=== PATIENT | female | born 1960 | race Caucasian/White ===

== ENCOUNTER 2018-02-09 00:57 | Inpatient (IN) ==
--- NOTE | 2018-02-09 01:46 | Emergency Department Note ---
ED Disposition Clinical Impression: Bronchitis, Renal insufficiency, Elevated TSH Congestive heart failure Qualifiers: Heart failure type: unspecified Heart failure chronicity: unspecified Qualified Code(s): I50.9 - Heart failure, unspecified Obesity Qualifiers: Obesity type: due to excess calories Obesity classification: adult class 3 (BMI >= 40) Serious obesity comorbidity presence: with serious comorbidity Body mass index: BMI 45.0-49.9 Qualified Code(s): E66.01 - Morbid (severe) obesity due to excess calories; Z68.42 - Body mass index (BMI) 45.0-49.9, adult Diabetes mellitus, insulin dependent (IDDM), uncontrolled Qualifiers: Glycemic state: with hyperglycemia Qualified Code(s): E10.65 - Type 1 diabetes mellitus with hyperglycemia Disposition: Admitted as Observation Condition on Discharge: Serious - Critical Care Critical Care Time: No Attestation: On 02/09/18, the high probability of a clinically significant, sudden or life threatening deterioration of the following system(s) required my full and direct attention, intervention and personal management. The time I documented below is in addition to time spent performing reported procedures but includes the following listed in this critical care notation. Medical Decision Making - Medical Records Medical records reviewed: Yes: I reviewed the patient's medical records. - Uriel Inquiry Pt receiving controlled substance: No Vital Signs: 02/09/18 01:02 Temperature 98.3 F Temperature Source Oral Respiratory Rate 18 Blood Pressure [Right Arm] 120/76 Blood Pressure Mean [Right Arm] 90 Blood Pressure Source [Right Arm] Automatic Cuff Blood Pressure Position [Right Arm] Sitting 02 Sat by Pulse Oximetry 98 Oxygen Delivery Method Room Air - Lab Data Lab results reviewed: Yes: I reviewed the patient's lab results. Lab Results 02/09/18 02:50: WBC 9.3, RBC 4.10 L, Hgb 11.2 L, Hct 38.0, MCV 92.7, MCH 27.3, MCHC 29.4 L, RDW 14.3, Plt Count 254, MPV 9.4, Neut % (Auto) 73.5, Lymph % (Auto) 19.1, [place] % (Auto) 5.5, Eos % (Auto) 1.2, Baso % (Auto) 0.6, Neut # (Auto) 6.9, Lymph # (Auto) 1.8, [place] # (Auto) 0.5, Eos # (Auto) 0.1, Baso # (Auto) 0.1 02/09/18 02:50: Sodium 132 L, Potassium 4.2, Chloride 96 L, Carbon Dioxide 26, Anion Gap 14.2, BUN 22 H, Creatinine 1.52 H, Estimated Creat Clear 41, Estimated GFR 35 L, Est GFR ( Amer) 43 L, Glucose 559 H*, Calcium 8.6, Troponin I 0.03, TSH 10.90 H, Thyroxine (T4) 6.6 02/09/18 02:50: B-Natriuretic Peptide 1070 H 02/09/18 02:50: Lactate 2.6 H Result diagrams: 02/09/18 02:50 02/09/18 02:50 Orders (Tests/Meds): ORDERS Category Date Time Status XR chest 2V Stat Exams 02/09/18 01:14 Taken Blood Culture Stat Micro 02/09/18 02:50 Received - Radiology Data #1 Image(s): Chest Image Reviewed: Yes I reviewed the patient's radiology image Preliminary Findings: Abnormal (chf/effusion) - ECG Data Tracing #1 Normal Sinus Rhythm: Yes Ischemic changes: non-specific ST-T wave changes ECG compared to prior tracings: there are no prior tracings available for comparison - Physician Consults Physician Consulted: juan Reason -: Admission Resp/SOB HPI - General Chief Complaint: Shortness of Breath/Dyspnea Stated Complaint: SOB Time Seen by Provider: 02/09/18 01:45 Mode of Arrival: Ambulatory Source of Information: Patient, Relative, Medical Record Limitations: No Limitations Description of Symptoms (Recalled from ER Triage Doc. by RN): Pt states she is SOA, states she had a fever 2 days. and has been coughing up yellow stuff, sore throat, lost her voice 2 days ago, she states it knox when she breaths. - History of Present Illness this wf presents to the ed with c/c of sob fide with ambulation and lying down - occ chest pain - denied any hx of sig ht dis and no tob and admits non-compliant with diet and meds - she has had element of dysphonia and occ cough and she had concerns about bronchitis - she is diabetic MD Complaint: shortness of breath Onset (ago): day(s) Context: recent illness, occurred during exertion, medication noncompliance, elevated blood glucose Severity: moderate Relieving factors: upright position Exacerbating factors: lying flat, exertion Known history of: diabetes Associated symptoms: orthopnea Treatment prior to arrival: none - Related Data Home oxygen amount: none Home Medications Medication Instructions Recorded Confirmed Albuterol Sulfate [Albuterol HFA 18 gm IH DAILY 02/09/18 02/09/18 Inhaler] Furosemide [Furosemide 40MG tAB] 40 mg PO DAILY 02/09/18 02/09/18 Gabapentin 800 mg PO DAILY 02/09/18 02/09/18 Insulin Aspart [Novolog] 100 unit SQ DAILY 02/09/18 02/09/18 Insulin Detemir [Levemir 100 unit IS DAILY 02/09/18 02/09/18 100units/mL 3mL flexpen] Lubiprostone [Amitiza] 24 mcg PO DAILY 02/09/18 02/09/18 Potassium 99 mg PO DAILY 02/09/18 02/09/18 Pregabalin [Lyrica 150mg Cap] 150 mg PO DAILY 02/09/18 02/09/18 Sitagliptin Phosphate [Januvia 100 mg PO DAILY 02/09/18 02/09/18 100mg tablet] glipiZIDE [Glipizide ER] 5 mg PO DAILY 02/09/18 02/09/18 Allergies Allergy/AdvReac Type Severity Reaction Status Date / Time Penicillins Allergy Verified 02/09/18 01:13 [facility] History - Hepatitis A Screen Drug use history?: No High risk sexual behaviors?: No History of sexually transmitted infection?: No Currently employed?: No Childcare worker?: No Do you have indoor plumbing?: Yes Do you have electricity?: Yes Attestation statement:: This patient has been screened for Hepatitis A risk factors. I have reviewed the patient's past medical history: Yes Medical History: Reports:: Diabetes Mellitus Type 2 - Social History Smoking Status: Current every day smoker Alcohol Intake: never - Psychiatric History Expresses thoughts of harming self/others: None Suicide Plan Description: No Plan ROS Obtained: Yes All systems reviewed & no additional complaints - Constitutional Constitutional: Denies fever(s) - Eyes Eyes: Denies change in vision - ENT Ears, Nose, Mouth, and Throat: Denies sore throat - Cardiovascular Cardiovascular: Denies chest pain, Reports dyspnea - Respiratory Respiratory: Yes as per HPI, Yes cough, No coughing up blood - Gastrointestinal Gastrointestingal: Denies: abdominal pain - Genitourinary Female Genitourinary: Denies hematuria - Musculoskeletal Musculoskeletal: Denies joint pain, Denies neck pain - Integumentary/Breasts Skin/Breast: Denies rash - Neurologic Neurologic: Denies headache(s), Denies seizure-like activity Physical Exam - General General appearance: alert, obese - Head Head exam: normocephalic - Eye Eye exam: Present: PERRL, EOMI. Absent: scleral icterus - ENT ENT exam: Present: mucous membranes dry - Neck Neck exam: Present: trachea midline, other (no jvd) - Respiratory Respiratory exam: Present: wheezes, prolonged expiratory phase, other (bilat rhonchi ) - Cardiovascular Cardiovascular exam: Present: regular rate, systolic murmur, +S4 - Abdominal Exam Abdominal exam: Present: soft, distention - Extremities Exam Extremities exam: Present: pedal edema. Absent: calf tenderness - Neurological Exam Neurological exam: Present: alert, oriented X3, CN II-XII intact - Psychiatric Psychiatric exam: Present: anxious - Skin Skin exam: Absent: rash
[2018-02-09 02:59] LABS: Basophils # 0.1 K/mm3 (0-0.2); Basophils % 0.6 % (0.1-2.0); Eosinophils # 0.1 K/mm3 (0.0-0.4); Eosinophils % 1.2 % (0.1-12.0); Hemoglobin 11.2 g/dL (12.2-16.2); Lymphocytes # 1.8 K/mm3 (0.7-4.5); Lymphocytes % 19.1 % (10-50); Mean Corpuscular HGB Conc 29.4 g/dL (31.8-35.4); Mean Corpuscular Hemoglobin 27.3 pg (27.0-31.2); Mean Corpuscular Volume 92.7 fl (81-99); Mean Platelet Volume 9.4 fl (7.4-10.4); Monocytes # 0.5 K/mm3 (0.1-1.0); Monocytes % 5.5 % (1.7-9.3); Neutrophils # 6.9 K/mm3 (1.8-7.8); Neutrophils % 73.5 % (37.0-80.0); Platelet Count 254 K/mm3 (142-424); Red Cell Distribution Width 14.3 % (11.5-17.5); White Blood Count 9.3 K/mm3 (4.8-10.8)
[2018-02-09 03:26] LABS: Anion Gap 14.2 mEq/L (5-15); Calcium 8.6 mg/dL (8.5-10.1); Potassium 4.2 mmoL/L (3.5-5.1); T4 (Thyroxine) 6.6 ug/dl (4.7-13.3); Thyroid Stimulating Hormone 10.9 uIU/ml (0.358-3.740)
--- NOTE | 2018-02-09 07:18 | History & Physical Report ---
*Admission Date: 02/09/18 *Chief complaint: SOA, cough *History of present illness: 57-year-old female with morbid obesity, hypertension, type 2 diabetes, hypothyroidism, and presumed CHF who presented to the ER with worsening shortness of breath, 3 days of fever and productive cough. She did receive Lasix overnight with some improvement in her shortness of breath. Patient denies use of alcohol and quit smoking about 7 years ago (approximately 27-atwb-cvbs history of smoking). Blood sugars not well controlled per patient. On an interesting regimen of detemir and NovoLog, approximately 60/40. evaluation in the ER showed normal troponin with evidence of congestive heart failure on chest x-ray and with elevated BNP greater than 5000. Patient was admitted for further treatment. Cardiology consulted for evaluation recommendations. Overnight patient has been stable on room air. Continues to have slightly productive cough. Echocardiogram being performed this morning on interview. [facility] History I have reviewed the patient's past medical history: Yes Medical History: Reports:: Diabetes Mellitus Type 2, Hypertension, MRSA Denies:: Cancer Other Medical History: Reports: Anemia, Hypothyroidism Other Surgeries: Yes: Appendectomy, Cholecystectomy, Hernia Repair (20), Tubal Ligation, Other (Partial Bowel Removal) Amputation: No Fractures: No - *Social History Educational Level: Completed Trade [employer] Smoking Status: Former smoker #Yrs smoked (if former smoker): 40 Smoking End Date: 2010 Alcohol Intake: former Occupational Status: disabled Housing: house - Psychiatric History Expresses thoughts of harming self/others: None Suicide Plan Description: No Plan *Family Hx:: Cancer, Hypertension, Stroke Review of Systems - Review of Systems Review of systems:: pertinent systems reviewed and negative unless documented below - *Neurologic Denies headache(s), Denies seizure-like activity Meds Home Medications Medication Instructions Recorded Confirmed Type Albuterol Sulfate [Albuterol HFA 1 - 2 puffs IH Q4-6H PRN 02/09/18 02/09/18 History Inhaler] Furosemide [Furosemide 40MG tAB] 40 mg PO DAILY 02/09/18 02/09/18 History Gabapentin 800 mg PO TID 02/09/18 02/09/18 History Insulin Aspart [Novolog Flexpen] 60 unit SQ BID 02/09/18 02/09/18 History Levothyroxine Sodium 175 mcg PO DAILY 02/09/18 02/09/18 History [Levothyroxine 175mcg (0.175mg) Tab] Losartan/Hydrochlorothiazide 1 each PO DAILY 02/09/18 02/09/18 History [Losartan-Hctz 100-25 mg Tab] Lubiprostone [Amitiza] 24 mcg PO BID 02/09/18 02/09/18 History Pantoprazole Sodium [Protonix 40mg 40 mg PO HS 02/09/18 02/09/18 History tablet] Phentermine HCl 37.5 mg PO DAILY 02/09/18 02/09/18 History Potassium Chloride 20 meq PO BID 02/09/18 02/09/18 History Pregabalin [Lyrica 150mg Cap] 150 mg PO BID 02/09/18 02/09/18 History Sitagliptin Phosphate [Januvia 100 mg PO DAILY 02/09/18 02/09/18 History 100mg tablet] Tizanidine HCl [Zanaflex 4mg 4 mg PO TIDP PRN 02/09/18 02/09/18 History tablet] glipiZIDE [Glipizide ER] 5 mg PO DAILY 02/09/18 02/09/18 History Allergies Allergy/AdvReac Type Severity Reaction Status Date / Time Penicillins Allergy Verified 02/09/18 01:13 Exam Vital signs and Labs for Last 24 Hours: Temp Pulse Resp BP Pulse Ox 97.6 F 85 20 110/59 L 93 L 02/09/18 05:49 02/09/18 04:54 02/09/18 05:49 02/09/18 05:49 02/09/18 05:49 Laboratory Results - last 24 hr 02/09/18 02:50: WBC 9.3, RBC 4.10 L, Hgb 11.2 L, Hct 38.0, MCV 92.7, MCH 27.3, MCHC 29.4 L, RDW 14.3, Plt Count 254, MPV 9.4, Neut % (Auto) 73.5, Lymph % (Auto) 19.1, [place] % (Auto) 5.5, Eos % (Auto) 1.2, Baso % (Auto) 0.6, Neut # (Auto) 6.9, Lymph # (Auto) 1.8, [place] # (Auto) 0.5, Eos # (Auto) 0.1, Baso # (Auto) 0.1 02/09/18 02:50: Sodium 132 L, Potassium 4.2, Chloride 96 L, Carbon Dioxide 26, Anion Gap 14.2, BUN 22 H, Creatinine 1.52 H, Estimated Creat Clear 41, Estimated GFR 35 L, Est GFR ( Amer) 43 L, Glucose 559 H*, Calcium 8.6, Troponin I 0.03, TSH 10.90 H, Thyroxine (T4) 6.6 02/09/18 02:50: B-Natriuretic Peptide 1070 H 02/09/18 02:50: Lactate 2.6 H 02/09/18 06:14: POC Glucose 456 H* I & O for Last 24 hours: Intake & Output 02/06/18 02/07/18 02/08/18 02/09/18 23:59 23:59 23:59 23:59 Weight 146.142 kg Microbiology Reports for the Last 24 Hours: Microbiology 02/09/18 04:50 Sputum - Expectorated Sputum Gram Stain - Final - Constitutional mild distress, morbidly obese - *Routine HEENT Exam Head: Present: normocephalic, atraumatic Eye: Present: EOMI, PERRL ENT: Present: mucous membranes moist - *Routine Neck Exam Present: supple - *Routine Respiratory Exam Present: distant breath sounds. Absent: wheezes, crackles - *Routine Cardiovascular Exam Present: Normal S1, Normal S2, irregularly irregular - *Routine Abdominal Exam Present: soft Comments: Obese - *Routine Rectal Exam Patient deferred: visual exam - *Routine Exam Patient deferred: external exam - *Routine Extremities Exam Present: edema. Absent: cyanosis, clubbing - *Routine Skin Exam Present: intact. Absent: cyanosis, erythema - *Routine Neurological Exam Present: alert, oriented X3, altered mental status Assessment and Plan (1) Anemia Current visit: Yes Status: Acute Qualifiers: Anemia type: unspecified type Qualified Code(s): D64.9 - Anemia, unspecified Category: Medical Code(s): D64.9 - Anemia, unspecified per history by patient - stable at this time, mild anemia, normochromic - monitor with AM labs. (2) Atrial fibrillation, new onset Current visit: Yes Status: Acute Category: Medical Code(s): I48.91 - Unspecified atrial fibrillation on Lovenox - valvular disease, needs transition to coumadin when stable (3) Bronchitis Current visit: Yes Status: Acute Category: Medical Code(s): J40 - Bronchitis, not specified as acute or chronic continue Levaquin for total of 7 days (4) CKD (chronic kidney disease) stage 3, GFR 30-59 ml/min Current visit: Yes Status: Acute Category: Medical Code(s): N18.3 - Chronic kidney disease, stage 3 (moderate) monitor daily - avoid nephrotoxics (5) Congestive heart failure Current visit: Yes Status: Acute Qualifiers: Heart failure type: combined systolic and diastolic Heart failure chronicity: unspecified Qualified Code(s): I50.40 - Unspecified combined systolic (congestive) and diastolic (congestive) heart failure Category: Medical Code(s): I50.9 - Heart failure, unspecified Echo with right and left sided dysfunction - EF 40% - global hypokinesis - goal directed therapy with Spironolactone, Coreg, LAsix. Declined Entresto due to past issues with lisinopril - cardiology consulted, appreciate recs - Recommend Cath Monday. (6) Diabetes mellitus, insulin dependent (IDDM), uncontrolled Current visit: Yes Status: Chronic Qualifiers: Glycemic state: with hyperglycemia Qualified Code(s): E10.65 - Type 1 diabetes mellitus with hyperglycemia Category: Medical Code(s): E10.65 - Type 1 diabetes mellitus with hyperglycemia Type 2 with uncontrolled status - A1C in AM - restarted home novolog 60/40 - SSI with fingersticks AC/HS (7) Elevated TSH Current visit: Yes Status: Chronic Category: Medical Code(s): R79.89 - Other specified abnormal findings of blood chemistry chronic, on levothyroxine 175mcg. - continue home dose (8) HFrEF (heart failure with reduced ejection fraction) Current visit: Yes Status: Chronic Qualifiers: Heart failure chronicity: acute on chronic Qualified Code(s): I50.23 - Acute on chronic systolic (congestive) heart failure Category: Medical Code(s): I50.20 - Unspecified systolic (congestive) heart failure diurese and goal directed therapy as per above. (9) Morbid obesity Current visit: Yes Status: Acute Category: Medical Code(s): E66.01 - Morbid (severe) obesity due to excess calories complicates all aspects of care - Assessment and plan all Dx Assessment and Plan for all problems:: patient remains medically unstable with continued need for inpatient management.
--- NOTE | 2018-02-09 07:59 | Consult Report ---
History of Present Illness Consult date: 02/09/18 Requesting physician: Kristofer De Leon Consult reason: shortness of breath Chief complaint: SOA Additional Medical History:: 1. Diabetes mellitus, treated since 2007 2. Obesity, morbid 3. Multiple (27 per patient) abdominal surgeries including placement and reversal of colostomy 4. Hypertension 5. Newly diagnosed atrial fibrillation, 02/09/2018 6. History of tobacco use discontinued approximately 2010, previously smoked 3 packs/week for about 30 years 7. History of anemia requiring transfusion in the past. Pt reports anemia due to multiple surgeries on abdomen 8. Hypothyroidism, on supplement History of present illness: 57-year-old white female with diabetes, hypertension and morbid obesity presented with increasing shortness of breath over the last 3 days. Patient denies any previous history of cardiac issues or known congestive heart failure. She did receive Lasix overnight with some improvement in her shortness of breath. Patient denies use of alcohol and quit smoking about 7 years ago. Blood sugars not well controlled per patient. Evaluation in the ER showed normal troponin with evidence of congestive heart failure on chest x-ray and with elevated BNP greater than 5000. Patient was admitted for further treatment. Cardiology consulted for evaluation recommendations. Preliminary echocardiogram this morning shows ejection fraction about 30%. Official reading pending [facility] History Medical History: Reports:: Diabetes Mellitus Type 2, Hypertension, MRSA Denies:: Cancer Other Medical History: Reports: Anemia, Hypothyroidism Other Surgeries: Yes: Appendectomy, Cholecystectomy, Hernia Repair (20), Tubal Ligation, Other (Partial Bowel Removal) Amputation: No Fractures: No - *Social History Educational Level: Completed Trade [employer] Smoking Status: Former smoker #Yrs smoked (if former smoker): 40 Smoking End Date: 2010 Alcohol Intake: former Occupational Status: disabled Housing: house - Psychiatric History Expresses thoughts of harming self/others: None Suicide Plan Description: No Plan *Family Hx:: Cancer, Hypertension, Stroke Meds Home Medications Medication Instructions Recorded Confirmed Type Albuterol Sulfate [Albuterol HFA 1 - 2 puffs IH Q4-6H PRN 02/09/18 02/09/18 History Inhaler] Furosemide [Furosemide 40MG tAB] 40 mg PO DAILY 02/09/18 02/09/18 History Gabapentin 800 mg PO TID 02/09/18 02/09/18 History Insulin Aspart [Novolog Flexpen] 60 unit SQ BID 02/09/18 02/09/18 History Levothyroxine Sodium 175 mcg PO DAILY 02/09/18 02/09/18 History [Levothyroxine 175mcg (0.175mg) Tab] Losartan/Hydrochlorothiazide 1 each PO DAILY 02/09/18 02/09/18 History [Losartan-Hctz 100-25 mg Tab] Lubiprostone [Amitiza] 24 mcg PO BID 02/09/18 02/09/18 History Pantoprazole Sodium [Protonix 40mg 40 mg PO HS 02/09/18 02/09/18 History tablet] Phentermine HCl 37.5 mg PO DAILY 02/09/18 02/09/18 History Potassium Chloride 20 meq PO BID 02/09/18 02/09/18 History Pregabalin [Lyrica 150mg Cap] 150 mg PO BID 02/09/18 02/09/18 History Sitagliptin Phosphate [Januvia 100 mg PO DAILY 02/09/18 02/09/18 History 100mg tablet] Tizanidine HCl [Zanaflex 4mg 4 mg PO TIDP PRN 02/09/18 02/09/18 History tablet] glipiZIDE [Glipizide ER] 5 mg PO DAILY 02/09/18 02/09/18 History Allergies Allergy/AdvReac Type Severity Reaction Status Date / Time Penicillins Allergy Verified 02/09/18 01:13 Review of Systems - *Cardiovascular Reports shortness of breath, Reports shortness of breath with activity, Denies chest pain - *Respiratory Reports shortness of breath, Reports shortness of breath with activity - *Gastrointestinal Denies abdominal pain, Denies black, tarry stools - *Genitourinary Denies blood in urine - *Musculoskeletal Reports joint pain - *Neurologic Denies headache(s), Denies seizure-like activity Exam Vital signs and Labs for Last 24 Hours: Temp Pulse Resp BP Pulse Ox 97.6 F 85 20 110/59 L 93 L 02/09/18 05:49 02/09/18 04:54 02/09/18 05:49 02/09/18 05:49 02/09/18 05:49 Laboratory Results - last 24 hr 02/09/18 02:50: WBC 9.3, RBC 4.10 L, Hgb 11.2 L, Hct 38.0, MCV 92.7, MCH 27.3, MCHC 29.4 L, RDW 14.3, Plt Count 254, MPV 9.4, Neut % (Auto) 73.5, Lymph % (Auto) 19.1, [place] % (Auto) 5.5, Eos % (Auto) 1.2, Baso % (Auto) 0.6, Neut # (Auto) 6.9, Lymph # (Auto) 1.8, [place] # (Auto) 0.5, Eos # (Auto) 0.1, Baso # (Auto) 0.1 02/09/18 02:50: Sodium 132 L, Potassium 4.2, Chloride 96 L, Carbon Dioxide 26, Anion Gap 14.2, BUN 22 H, Creatinine 1.52 H, Estimated Creat Clear 41, Estimated GFR 35 L, Est GFR ( Amer) 43 L, Glucose 559 H*, Calcium 8.6, Troponin I 0.03, TSH 10.90 H, Thyroxine (T4) 6.6 02/09/18 02:50: B-Natriuretic Peptide 1070 H 02/09/18 02:50: Lactate 2.6 H 02/09/18 06:14: POC Glucose 456 H* I & O for Last 24 hours: Intake & Output 02/06/18 02/07/18 02/08/18 02/09/18 11:59 11:59 11:59 11:59 Weight 322 lb 3 oz Microbiology Reports for the Last 24 Hours: Microbiology 02/09/18 04:50 Sputum - Expectorated Sputum Gram Stain - Final - *Routine Neck Exam Present: supple. Absent: JVD, carotid bruit - *Routine Respiratory Exam Present: decreased breath sounds, rales, diminished air movement. Absent: accessory muscle use, rhonchi, wheezes - *Routine Cardiovascular Exam Present: irregular rhythm. Absent: murmur, gallop, rubs - *Routine Abdominal Exam Present: soft. Absent: tenderness, distended, guarding - *Routine Extremities Exam Absent: edema, calf tenderness - *Routine Neurological Exam Present: alert, oriented X3, moving all extremities Assessment and Plan (1) HFrEF (heart failure with reduced ejection fraction) Current visit: Yes Status: Acute Category: Medical Code(s): I50.20 - Unspecified systolic (congestive) heart failure (2) Congestive heart failure Current visit: Yes Status: Acute Qualifiers: Heart failure type: unspecified Heart failure chronicity: unspecified Qualified Code(s): I50.9 - Heart failure, unspecified Category: Medical Code(s): I50.9 - Heart failure, unspecified (3) Atrial fibrillation, new onset Current visit: Yes Status: Acute Category: Medical Code(s): I48.91 - Unspecified atrial fibrillation (4) Diabetes mellitus, insulin dependent (IDDM), uncontrolled Current visit: Yes Status: Acute Qualifiers: Glycemic state: with hyperglycemia Qualified Code(s): E10.65 - Type 1 diabetes mellitus with hyperglycemia Category: Medical Code(s): E10.65 - Type 1 diabetes mellitus with hyperglycemia (5) Morbid obesity Current visit: Yes Status: Acute Category: Medical Code(s): E66.01 - Morbid (severe) obesity due to excess calories (6) Anemia Current visit: Yes Status: Acute Category: Medical Code(s): D64.9 - Anemia, unspecified (7) CKD (chronic kidney disease) stage 3, GFR 30-59 ml/min Current visit: Yes Status: Acute Category: Medical Code(s): N18.3 - Chronic kidney disease, stage 3 (moderate) - Assessment and plan all Dx Assessment and Plan for all problems:: 1. Newly diagnosed heart failure with newly diagnosed cardiomyopathy in combination with newly diagnosed atrial fibrillation. Etiology of the reduced ejection fraction at this time is unknown but includes viral cardiomyopathy, cardiomyopathy related to atrial fibrillation or cardiomyopathy due to coronary artery disease with possible old myocardial infarction. Continue IV diuretics. Patient will need cardiac catheterization once she is able to lie flat for more than 1 minute. 2. We will start standard medical therapy for cardiomyopathy and congestive heart failure including Entresto (pt refuses lisinopril and has had diovan in the past), beta-kemal, digoxin and spironolactone in addition to IV lasix. 3. Echocardiogram has been ordered. 4. With tentatively plan for cardiac catheterization on Monday if patient is still in the hospital, otherwise it will be performed as an outpatient. 5. We will start Lovenox 1 mg/kg twice daily due to the atrial fibrillation and plan to hold Monday morning in preparation for the cardiac catheterization. If patient is discharged home over the weekend recommend switching to Eliquis therapy as patient has voiced some concern regarding Xarelto.
--- NOTE | 2018-02-09 08:09 | Pharmacy Consult Notes ---
[facility] Pharmacy VTE Monitoring - Patient Demographics Admission date: 02/09/18 Report Date: 02/09/18 Time: 08:09 Allergies/Adverse Reactions: Patient Allergies Penicillins Allergy (Verified 02/09/18 01:13) Height: 98.22 m Weight: 146.142 kg Patient Problems: Current Active Problems Bronchitis (Acute) Congestive heart failure (Acute) Renal insufficiency (Acute) Elevated TSH (Acute) Obesity (Acute) Diabetes mellitus, insulin dependent (IDDM), uncontrolled (Acute) - VTE Risk Labs: VTE Related Lab Results Hgb 11.2 g/dL (12.2-16.2) L 02/09/18 02:50 Hct 38.0 % (37.0-47.0) 02/09/18 02:50 Plt Count 254 K/mm3 (142-424) 02/09/18 02:50 BUN 22 mg/dL (7-18) H 02/09/18 02:50 Creatinine 1.52 mg/dL (0.55-1.02) H 02/09/18 02:50 Estimated Creat Clear 41 mL/min (50-200) 02/09/18 02:50 VTE Risk Level: Moderate Risk - Prophylaxis VTE Prophylaxis Ordered?: Yes Types of VTE Prophylaxis: TEDS Knee High Location of Applied Device: Bilateral Lower Extremeties - VTE Diagnosis Confirmed Treatment or plan recommended: Continue Current Treatment
--- NOTE | 2018-02-09 10:16 | Cardiology Report ---
PROCEDURE: 2-D M-mode and color Doppler study INDICATIONS FOR THE TEST: Chest pain COPD Heart MurmurX Tobacco SmokingEX Palpitations Fatigue Syncope Edema HypertensionXDiabetes MellitusX Rheumatic Fever SOBXDOEXObesityXHyperlipidemia Family History HD Additional History AF TDS OBESITY,DILATED LV PATIENT INFORMATION HEIGHT: 68 WEIGHT:322 GENDER: Female B/P:110/59 2-D/M-MODE INTERPRETATION: 2-D MEASUREMENTS OBSERVED VALUES IN CMS Right Ventricular Dimension (RVDd) 3.8 Interventricular Septum (Thickness)(IVsd) 1.0 Left Ventricular Internal Dimensions(LVIDd) 6.7 Left Ventricular Posterior Wall (Thickness)(LVPWd) 1.3 Aortic Root 3.7 Aortic Cusp Separation 1.0 Left Atrial Dimensions (LAD) 4.4 2D 1. Left atrium is mildly enlarged, left ventricle is mildly dilated, there is mild concentric left ventricular hypertrophy, there is moderately reduced left ventricular systolic function, visually estimated ejection fraction of 40% with left ventricular global hypokinesis. 2. The right atrium and right ventricle are mildly enlarged with normal contractility. 3. The aortic valve is thickened and calcified leaflet continue to display mobility. 4. The mitral valve has mitral annular calcification. 5. The tricuspid valve is grossly normal. 6. No significant pericardial effusion noted. DOPPLER INTERROGATION: Doppler interrogation of the aortic, mitral and tricuspid valvular presence of mild mitral and tricuspid regurgitation, calculated right ventricular systolic pressure is 49 mmHg consistent with moderate pulmonary hypertension, diastolic parameters are inconclusive. CONCLUSION: 1. Mildly enlarged left atrium, mildly dilated left ventricle, there is mild concentric left ventricular hypertrophy, visually estimated ejection fraction 40% with left ventricle global hypokinesis. Diastolic parameters are inconclusive. 2. Mildly enlarged right ventricle with normal contractility. 3. Thickened and calcified aortic valve without Doppler evidence of aortic stenosis aortic insufficiency. 4. Mild mitral and tricuspid regurgitation, calculated right ventricular systolic pressure is 49 mmHg consistent with moderate pulmonary hypertension. 5. No significant pericardial effusion noted.
[2018-02-10 07:02] LABS: Basophils % 0.6 % (0.1-2.0); Eosinophils # 0.2 K/mm3 (0.0-0.4); Eosinophils % 2.3 % (0.1-12.0); Hematocrit 38.6 % (37.0-47.0); Hemoglobin 11.5 g/dL (12.2-16.2); Lymphocytes # 2.4 K/mm3 (0.7-4.5); Lymphocytes % 30.3 % (10-50); Mean Corpuscular HGB Conc 29.9 g/dL (31.8-35.4); Mean Corpuscular Hemoglobin 26.4 pg (27.0-31.2); Mean Corpuscular Volume 88.2 fl (81-99); Mean Platelet Volume 9.6 fl (7.4-10.4); Monocytes # 0.6 K/mm3 (0.1-1.0); Monocytes % 7.5 % (1.7-9.3); Neutrophils # 4.7 K/mm3 (1.8-7.8); Neutrophils % 59.3 % (37.0-80.0); Platelet Count 241 K/mm3 (142-424); Red Blood Count 4.37 M/mm3 (4.20-5.40); Red Cell Distribution Width 14.8 % (11.5-17.5)
--- NOTE | 2018-02-10 07:47 | Discharge Summary ---
General - General Admission date:: 02/09/18 Discharge date: 02/10/18 HPI HPI: 57-year-old female with morbid obesity, hypertension, type 2 diabetes, hypothyroidism, and presumed CHF who presented to the ER with worsening shortness of breath, 3 days of fever and productive cough. She did receive Lasix overnight with some improvement in her shortness of breath. Patient denies use of alcohol and quit smoking about 7 years ago (approximately 10-pack- year history of smoking). Blood sugars not well controlled per patient. On an interesting regimen of detemir and NovoLog, approximately 60/40. evaluation in the ER showed normal troponin with evidence of congestive heart failure on chest x-ray and with elevated BNP greater than 5000. Patient was admitted for further treatment. Cardiology consulted for evaluation recommendations. Overnight patient has been stable on room air. Continues to have slightly productive cough. Echocardiogram being performed this morning on interview. Hospital Course Hospital Course: Patient was admitted, multiple including chest x-ray which revealed evidence of lobar pneumonia and patient was continued on levofloxacin that had been prescribed from the emergency department. Given patient's breathlessness and other stigmata of CHF echocardiogram was done which revealed ejection fraction of 30% with symmetric wall motion. She was also found to have atrial fibrillation with controlled rate response. Patient has no history of cardiac disease and was very surprised by this diagnosis. Patient was placed on spironolactone. Afterload reduction and diuresis were also given. Patient improved very nicely with almost 7 L of diuresis over the next 38-42 hours. [place] much better and was able to rest comfortably on room air. This morning she wishes to be discharged. Plan will be as follows: 1. Discharge home on antibiotics, spironolactone and Entresto as noted. 2. Patient is set up for outpatient heart catheterization on Monday, as a result of this impending heart catheterization we will not initiate anticoagulation therapy at this point. 3. She will continue current diabetic regimen but she will discuss with her primary physician her frequent hypoglycemia she reports occurs at home. Instructed to return to the emergency department if breathlessness, chest pain or other cardiac symptoms occur. Objective Vital signs: Temp Pulse Resp BP Pulse Ox 97.6 F 74 20 146/69 H 94 L 02/10/18 04:00 02/10/18 04:00 02/10/18 04:00 02/10/18 04:00 02/10/18 06:38 Narrative: Patient is pleasant, talkative, morbidly obese which limits her exam accuracy and complicates all aspects of her care. Posterior lung blue are clear with fairly good air entry. Heart rate irregular but rate controlled. Abdomen is soft and nontender. No peripheral edema noted. Improved over admission exam. Results Labs on day of discharge: Labs from last 24 hours 02/10/18 02/10/18 02/09/18 06:55 06:38 20:04 WBC 8.0 RBC 4.37 Hgb 11.5 L Hct 38.6 MCV 88.2 MCH 26.4 L MCHC 29.9 L RDW 14.8 Plt Count 241 MPV 9.6 Neut % (Auto) 59.3 Lymph % (Auto) 30.3 [place] % (Auto) 7.5 Eos % (Auto) 2.3 Baso % (Auto) 0.6 Neut # (Auto) 4.7 Lymph # (Auto) 2.4 [place] # (Auto) 0.6 Eos # (Auto) 0.2 Baso # (Auto) 0.0 POC Glucose 180 H 98 Lactate Troponin I 02/09/18 02/09/18 02/09/18 16:58 15:41 11:31 WBC RBC Hgb Hct MCV MCH MCHC RDW Plt Count MPV Neut % (Auto) Lymph % (Auto) [place] % (Auto) Eos % (Auto) Baso % (Auto) Neut # (Auto) Lymph # (Auto) [place] # (Auto) Eos # (Auto) Baso # (Auto) POC Glucose 73 59 L 203 H Lactate Troponin I 02/09/18 02/09/18 02/09/18 11:05 09:51 07:22 WBC RBC Hgb Hct MCV MCH MCHC RDW Plt Count MPV Neut % (Auto) Lymph % (Auto) [place] % (Auto) Eos % (Auto) Baso % (Auto) Neut # (Auto) Lymph # (Auto) [place] # (Auto) Eos # (Auto) Baso # (Auto) POC Glucose Lactate 2.9 H 2.5 H Troponin I < 0.02 02/09/18 07:22 WBC RBC Hgb Hct MCV MCH MCHC RDW Plt Count MPV Neut % (Auto) Lymph % (Auto) [place] % (Auto) Eos % (Auto) Baso % (Auto) Neut # (Auto) Lymph # (Auto) [place] # (Auto) Eos # (Auto) Baso # (Auto) POC Glucose Lactate Troponin I 0.03 DS: Diagnosis - Discharge Diagnosis (1) Anemia Status: Chronic (2) Atrial fibrillation, new onset Status: Acute (3) Bronchitis Status: Acute (4) CKD (chronic kidney disease) stage 3, GFR 30-59 ml/min Status: Acute (5) Congestive heart failure Status: Acute (6) Diabetes mellitus, insulin dependent (IDDM), uncontrolled Status: Chronic (7) Elevated TSH Status: Chronic (8) HFrEF (heart failure with reduced ejection fraction) Status: Chronic (9) Morbid obesity Status: Chronic Discharge Plan - Patient Discharge Instructions ACTIVITY: Continue current activity DIET: low salt diet Additional Instructions: Nothing by mouth after midnight on Monday night, February 11 in preparation for outpatient heart catheterization on Monday. Patient Instructions: Anemia, DI for Heart Failure - Follow up Plan Follow up with: Tirso Gold MD [Staff Physician] - 02/12/18 8:00 am Disposition: Home, Self-Intermediate Medications: Home Medications Medication Instructions Recorded Confirmed Type Albuterol Sulfate [Albuterol HFA 1 - 2 puffs IH Q4-6H PRN 02/09/18 02/09/18 History Inhaler] Gabapentin 800 mg PO TID 02/09/18 02/09/18 History Insulin Aspart [Novolog Flexpen] 60 unit SQ BID 02/09/18 02/09/18 History Levothyroxine Sodium 175 mcg PO DAILY 02/09/18 02/09/18 History [Levothyroxine 175mcg (0.175mg) Tab] Losartan/Hydrochlorothiazide 1 each PO DAILY 02/09/18 02/09/18 History [Losartan-Hctz 100-25 mg Tab] Lubiprostone [Amitiza] 24 mcg PO BID 02/09/18 02/09/18 History Pantoprazole Sodium [Protonix 40mg 40 mg PO HS 02/09/18 02/09/18 History tablet] Phentermine HCl 37.5 mg PO DAILY 02/09/18 02/09/18 History Potassium Chloride 20 meq PO BID 02/09/18 02/09/18 History Pregabalin [Lyrica 150mg Cap] 150 mg PO BID 02/09/18 02/09/18 History Sitagliptin Phosphate [Januvia 100 mg PO DAILY 02/09/18 02/09/18 History 100mg tablet] Tizanidine HCl [Zanaflex 4mg 4 mg PO TIDP PRN 02/09/18 02/09/18 History tablet] glipiZIDE [Glipizide ER] 5 mg PO DAILY 02/09/18 02/09/18 History Prescriptions/Medication Reconciliation: New Carvedilol [Coreg 3.125mg Tablet] 3.125 mg PO BID #60 tablet levoFLOXacin [Levaquin 500mg tab] 500 mg PO DAILY #7 tab Sacubitril/Valsartan [Entresto 24/26mg Tablet] 1 each PO BID 14 Days #28 tablet Spironolactone [Aldactone 25mg Tab] 25 mg PO DAILY #60 tablet Continue Sitagliptin Phosphate [Januvia 100mg tablet] 100 mg PO DAILY Pregabalin [Lyrica 150mg Cap] 150 mg PO BID Gabapentin 800 mg PO TID Albuterol Sulfate [Albuterol HFA Inhaler] 1 - 2 puffs IH Q4-6H PRN PRN Reason: Shortness Of Breath Insulin Aspart [Novolog Flexpen] 60 unit SQ BID Levothyroxine Sodium [Levothyroxine 175mcg (0.175mg) Tab] 175 mcg PO DAILY Potassium Chloride 20 meq PO BID Tizanidine HCl [Zanaflex 4mg tablet] 4 mg PO TIDP PRN PRN Reason: PAIN Furosemide [Furosemide 40MG tAB] 40 mg PO DAILY #30 tablet Lubiprostone [Amitiza] 24 mcg PO BID Pantoprazole Sodium [Protonix 40mg tablet] 40 mg PO HS Discontinued glipiZIDE [Glipizide ER] 5 mg PO DAILY Losartan/Hydrochlorothiazide [Losartan-Hctz 100-25 mg Tab] 1 each PO DAILY Phentermine HCl 37.5 mg PO DAILY
[2018-02-10 08:02] LABS: Chol/HDL Ratio 5.8 (1-3.5)
[2018-02-10 08:08] LABS: Albumin Level 2.7 gm/dL (3.4-5.0); Albumin/Globulin Ratio 0.8 (1.1-1.8); Anion Gap 12.6 mEq/L (5-15); Bilirubin,Total 0.2 mg/dL (0.2-1.0); Calcium 8.2 mg/dL (8.5-10.1); Globulin 3.2 gm/dl (1.3-3.2); Potassium 3.5 mmoL/L (3.5-5.1); Total Protein,Serum 5.9 gm/dL (6.4-8.2)
== END 2018-02-10 09:41 | disposition home or self-care (01) ==
LOC: ER 00:57 → 2ND 00:57
PROVIDERS: ADMIT Internal Medicine Adolescent Medicine; ATTEND Internal Medicine Adolescent Medicine

== ENCOUNTER → 2018-03-12 08:28 | Outpatient (CLI) | payer MEDICARE, SELFPAY | PROVIDERS: PCP Family Medicine; Visit Provider Emergency Medicine | DX: R55 Syncope and collapse (principal) | CPT/HCPCS: 93225; 93226 ==

== ENCOUNTER → 2018-03-15 16:16 | Outpatient (CLI) | payer MEDICARE, SELFPAY ==
[2018-03-15 17:45] LABS: Anion Gap 15.3 mEq/L (5-15); Blood Urea Nitrogen 34 mg/dL (7-18); Calcium 8.8 mg/dL (8.5-10.1); Carbon Dioxide 25 mmol/L (21.0-32.0); Chloride 102 mmol/L (98-107); Creatinine,Serum 1.78 mg/dL (0.55-1.02); Estimated Glomerular Filt Rate 29 ml/min (>60); GFR (African American) 36 ML/MIN (>60); Glucose 289 mg/dL (74-106); Potassium 5.3 mmoL/L (3.5-5.1); Sodium 137 mmol/L (136-145)
== END ==
PROVIDERS: Visit Provider Internal Medicine Cardiovascular Disease
DX: I50.40 Unspecified combined systolic (congestive) and diastolic (congestive) heart failure (principal); I51.9 Heart disease, unspecified
CPT/HCPCS: 36415; 80048; 83880

== ENCOUNTER → 2018-04-19 09:09 | Outpatient (CLI) | payer MEDICARE, MEDICAID, SELFPAY ==
[2018-04-19 10:03] LABS: Anion Gap 9.8 mEq/L (5-15); Blood Urea Nitrogen 22 mg/dL (7-18); Calcium 9.1 mg/dL (8.5-10.1); Carbon Dioxide 30 mmol/L (21.0-32.0); Chloride 107 mmol/L (98-107); Creatinine,Serum 1.33 mg/dL (0.55-1.02); Estimated Glomerular Filt Rate 41 ml/min (>60); GFR (African American) 50 ML/MIN (>60); Glucose 127 mg/dL (74-106); Potassium 3.8 mmoL/L (3.5-5.1); Sodium 143 mmol/L (136-145)
== END ==
PROVIDERS: Visit Provider Urology
DX: I10 Essential (primary) hypertension (principal); I27.20 Pulmonary hypertension, unspecified; I50.9 Heart failure, unspecified; T50.905A Adverse effect of unspecified drugs, medicaments and biological substances, initial encounter
CPT/HCPCS: 36415; 80048; 83880

== ENCOUNTER 2018-04-22 18:59 | Inpatient (IN) ==
[2018-04-22 19:23] LABS: Basophils % 0.4 % (0.1-2.0); Eosinophils # 0.1 K/mm3 (0.0-0.4); Hematocrit 38.7 % (37.0-47.0); Hemoglobin 11.4 g/dL (12.2-16.2); Lymphocytes # 2.1 K/mm3 (0.7-4.5); Lymphocytes % 20.6 % (10-50); Mean Corpuscular HGB Conc 29.5 g/dL (31.8-35.4); Mean Corpuscular Hemoglobin 25.1 pg (27.0-31.2); Mean Corpuscular Volume 85.2 fl (81-99); Mean Platelet Volume 8.8 fl (7.4-10.4); Monocytes # 0.5 K/mm3 (0.1-1.0); Monocytes % 5.1 % (1.7-9.3); Neutrophils # 7.4 K/mm3 (1.8-7.8); Platelet Count 244 K/mm3 (142-424); Red Blood Count 4.55 M/mm3 (4.20-5.40); Red Cell Distribution Width 15.9 % (11.5-17.5); White Blood Count 10.1 K/mm3 (4.8-10.8)
[2018-04-22 19:42] LABS: Albumin Level 2.8 gm/dL (3.4-5.0); Albumin/Globulin Ratio 0.7 (1.1-1.8); Anion Gap 14.1 mEq/L (5-15); Bilirubin,Total 0.5 mg/dL (0.2-1.0); Calcium 8.4 mg/dL (8.5-10.1); Globulin 4.1 gm/dl (1.3-3.2); Potassium 4.1 mmoL/L (3.5-5.1); Total Protein,Serum 6.9 gm/dL (6.4-8.2)
[2018-04-22 20:11] LABS: Free Thyroxine Index 2.9 ug/dL (5.93-13.13); Thyroid Stimulating Hormone 12.76 uIU/ml (0.358-3.740)
--- NOTE | 2018-04-22 22:24 | Emergency Department Note ---
ED Disposition Clinical Impression: Heart palpitations, Renal insufficiency, Elevated TSH Diabetes mellitus, insulin dependent (IDDM), uncontrolled Qualifiers: Glycemic state: with hyperglycemia Qualified Code(s): E10.65 - Type 1 diabetes mellitus with hyperglycemia Obesity Qualifiers: Obesity type: due to excess calories Obesity classification: adult class 3 (BMI >= 40) Serious obesity comorbidity presence: with serious comorbidity Body mass index: BMI 45.0-49.9 Qualified Code(s): E66.01 - Morbid (severe) obesity due to excess calories; Z68.42 - Body mass index (BMI) 45.0-49.9, adult HFrEF (heart failure with reduced ejection fraction) Qualifiers: Heart failure chronicity: acute on chronic Qualified Code(s): I50.23 - Acute on chronic systolic (congestive) heart failure Disposition: Admitted as Observation Condition on Discharge: Fair Referrals: Raad Ocampo [Primary Care Provider] - - Critical Care Critical Care Time: No Attestation: On 04/22/18, the high probability of a clinically significant, sudden or life threatening deterioration of the following system(s) required my full and direct attention, intervention and personal management. The time I documented below is in addition to time spent performing reported procedures but includes the following listed in this critical care notation. Medical Decision Making - Medical Records Medical records reviewed: Yes: I reviewed the patient's medical records. - Uriel Inquiry Pt receiving controlled substance: No Vital Signs: 04/22/18 19:00 04/22/18 20:32 04/22/18 20:38 Temperature 98.3 F Temperature Source Oral Pulse Rate [Right Brachial] 57 L 50 L 59 L Respiratory Rate 26 H 16 18 Blood Pressure [Right Arm] 129/68 91/55 L 91/55 L Blood Pressure Mean [Right Arm] 88 67 67 Blood Pressure Source [Right Arm] Automatic Cuff Automatic Cuff Automatic Cuff Blood Pressure Position [Right Arm] Sitting Sitting 02 Sat by Pulse Oximetry 96 95 91 L Oxygen Delivery Method Room Air Room Air Nasal Cannula Oxygen Flow Rate (LPM) 2 04/22/18 21:50 04/22/18 22:25 Temperature Temperature Source Pulse Rate [Right Brachial] 51 L 52 L Respiratory Rate 16 16 Blood Pressure [Right Arm] 114/73 101/56 L Blood Pressure Mean [Right Arm] 86 71 Blood Pressure Source [Right Arm] Automatic Cuff Blood Pressure Position [Right Arm] Sitting 02 Sat by Pulse Oximetry 97 95 Oxygen Delivery Method Room Air Oxygen Flow Rate (LPM) - Lab Data Lab results reviewed: Yes: I reviewed the patient's lab results. Lab Results 04/22/18 19:11: WBC 10.1, RBC 4.55, Hgb 11.4 L, Hct 38.7, MCV 85.2, MCH 25.1 L, MCHC 29.5 L, RDW 15.9, Plt Count 244, MPV 8.8, Neut % (Auto) 73.0, Lymph % (Auto) 20.6, [place] % (Auto) 5.1, Eos % (Auto) 1.0, Baso % (Auto) 0.4, Neut # (Auto) 7.4, Lymph # (Auto) 2.1, [place] # (Auto) 0.5, Eos # (Auto) 0.1, Baso # (Auto) 0.0 04/22/18 19:11: Sodium 138, Potassium 4.1, Chloride 102, Carbon Dioxide 26, Anion Gap 14.1, BUN 22 H, Creatinine 1.36 H, Estimated Creat Clear 50, Estimated GFR 40 L, Est GFR ( Amer) 48 L, Glucose 303 H, Calcium 8.4 L, Total Bilirubin 0.5, AST 16, ALT 22, Alkaline Phosphatase 77, Total Protein 6.9, Albumin 2.8 L, Globulin 4.1 H, Albumin/Globulin Ratio 0.7 L 04/22/18 19:11: Total Creatine Kinase 69, CK-MB (CK-2) 1.6, CK-MB (CK-2) Rel Index 2.3, Troponin I 0.02, TSH 12.76 H, Free T4 Index 2.9 L, Thyroxine (T4) 8.0, T3 Uptake 36 04/22/18 19:11: B-Natriuretic Peptide 958 H Result diagrams: 04/22/18 19:11 04/22/18 19:11 Orders (Tests/Meds): ED MEDICATIONS Generic Name Dose Route Start Last Admin Trade Name Freq PRN Reason Stop Dose Admin Sodium Chloride 10 ml 04/22/18 19:10 Saline Flush 10ml Syringe IV 05/22/18 19:09 NEEDED PRN Maintain IV Site - Radiology Data #1 Image(s): Chest Image Reviewed: Yes I reviewed the patient's radiology image Preliminary Findings: Abnormal (possible changes rt base ) - ECG Data Tracing #1 Normal Sinus Rhythm: Yes Ischemic changes: non-specific ST-T wave changes ECG compared to prior tracings: there are no significant changes - Physician Consults Physician Consulted: [email or web address] Reason -: Admission Additional Consult: morelia Reason -: Pt condition Chest Pain HPI - General Chief Complaint: Chest Pain Stated Complaint: chest pain Time Seen by Provider: 04/22/18 22:31 Mode of Arrival: Wheelchair Source of Information: Patient, Relative, Medical Record Limitations: No Limitations Description of Symptoms (Recalled from ER Triage Doc. by RN): anxiety, chest pain, heart fluttery, if she lays down then she is soa; gained 30-40lbs in last 3 weeks - History of Present Illness HPI narrative: pt with episode of fast hr after using inhaler with no syncope but felt in neck - has hx of chf MD complaint: chest pain indicative of cardiac Onset (ago): hour(s) Duration: now resolved Activity at onset: during rest Severity: moderate Quality: other (no chest pain ) Risk Factors for CAD: Hypertension, Family Hx of CAD, Diabetes Treatments prior to or on arrival for Cardiac Chest Pain: beta blockers - BLANCO Score for Non-Stemi Age of Patient: 50-59 years old Heart Rate: 50-69 bpm Systolic Blood Pressure: 120-139 mmhg Serum Creatinine: 1.20-1.59 mg/dl CHF [place] Class: I-No CHF Other Risk Factors: None Non-Stemi Risk Score: 88 - Related Data Prior Cardiac Testing/Procedures: Cardiac Angiogram On Oral Contraceptives: No Home Medications Medication Instructions Recorded Confirmed Albuterol Sulfate [Albuterol HFA 1 - 2 puffs IH Q4-6H PRN 02/09/18 04/19/18 Inhaler] Gabapentin 800 mg PO TID 02/09/18 04/19/18 Insulin Aspart [Novolog Flexpen] 60 unit SQ BID 02/09/18 04/19/18 Levothyroxine Sodium 175 mcg PO DAILY 02/09/18 04/19/18 [Levothyroxine 175mcg (0.175mg) Tab] Lubiprostone [Amitiza] 24 mcg PO BID 02/09/18 04/19/18 Pantoprazole Sodium [Protonix 40mg 40 mg PO HS 02/09/18 04/19/18 tablet] Pregabalin [Lyrica 150mg Cap] 150 mg PO BID 02/09/18 04/19/18 Sitagliptin Phosphate [Januvia 100 mg PO DAILY 02/09/18 04/19/18 100mg tablet] Tizanidine HCl [Zanaflex 4mg 4 mg PO TIDP PRN 02/09/18 04/19/18 tablet] Previous Rx's Medication Instructions Recorded losartan 50 mg tablet 50 mg PO DAILY #30 tab 03/08/18 bisoprolol fumarate 10 mg tablet 10 mg PO DAILY #30 tab 03/13/18 furosemide 40 mg tablet 40 mg PO BID #60 tab 04/19/18 spironolactone 25 mg tablet 25 mg PO DAILY #30 tab 04/19/18 Allergies Allergy/AdvReac Type Severity Reaction Status Date / Time Penicillins Allergy Verified 04/19/18 10:12 lisinopril AdvReac Mild Cough Verified 04/19/18 10:12 carvedilol AdvReac Unknown seizures Verified 04/19/18 10:12 [facility] History - Hepatitis A Screen Drug use history?: No High risk sexual behaviors?: No History of sexually transmitted infection?: No Currently employed?: No Childcare worker?: No Do you have indoor plumbing?: Yes Do you have electricity?: Yes Attestation statement:: This patient has been screened for Hepatitis A risk factors. I have reviewed the patient's past medical history: Yes Medical History: Reports:: Atrial Fibrillation, Congestive Heart Failure, Diabetes Mellitus Type 2, Hypertension, MRSA Denies:: Cancer, Diabetes Mellitus Type 1, Internal Pacemaker, Seizures Other Medical History: Reports: Anemia, Hypothyroidism Other Surgeries: Yes: Appendectomy, Cardiac Catheterization, Cholecystectomy, Hernia Repair (20), Tubal Ligation, Other (Partial Bowel Removal). No: Pacemaker Amputation: No Fractures: No - Social History Educational Level: Completed High School Smoking Status: Never smoker #Yrs smoked (if former smoker): 40 Alcohol Intake: never Substance Use Type: denies use Occupational Status: unemployed, disabled Housing: house Household Members: spouse - Psychiatric History Expresses thoughts of harming self/others: None Suicide Plan Description: No Plan Family Hx:: Coronary Artery Disease Comment: Father-CHF. Sister-CHF. Daughter-CHF ROS Obtained: Yes All systems reviewed & no additional complaints - Constitutional Constitutional: Denies fever(s) - Eyes Eyes: Denies change in vision - ENT Ears, Nose, Mouth, and Throat: Denies sore throat - Cardiovascular Cardiovascular: Reports as per HPI, Denies chest pain, Reports rapid heart rate - Gastrointestinal Gastrointestingal: Denies: vomiting - Genitourinary Female Genitourinary: Denies flank pain - Musculoskeletal Musculoskeletal: Denies joint pain - Integumentary/Breasts Skin/Breast: Denies rash - Neurologic Neurologic: Denies seizure-like activity Physical Exam - General General appearance: alert, obese - Head Head exam: normocephalic - Eye Eye exam: Present: PERRL, EOMI - ENT ENT exam: Present: mucous membranes moist - Neck Neck exam: Present: trachea midline - Respiratory Respiratory exam: Absent: respiratory distress - Cardiovascular Cardiovascular exam: Present: regular rate, systolic murmur, +S4 - Abdominal Exam Abdominal exam: Present: soft - Extremities Exam Extremities exam: Absent: calf tenderness - Back Exam Back exam: Present: normal inspection - Neurological Exam Neurological exam: Present: alert, oriented X3, CN II-XII intact - Psychiatric Psychiatric exam: Present: normal affect - Skin Skin exam: Absent: rash
[2018-04-23 05:23] LABS: Basophils % 0.3 % (0.1-2.0); Eosinophils # 0.1 K/mm3 (0.0-0.4); Eosinophils % 1.4 % (0.1-12.0); Hematocrit 38.6 % (37.0-47.0); Hemoglobin 11.6 g/dL (12.2-16.2); Lymphocytes # 1.8 K/mm3 (0.7-4.5); Lymphocytes % 17.6 % (10-50); Mean Corpuscular HGB Conc 30.1 g/dL (31.8-35.4); Mean Corpuscular Hemoglobin 25.1 pg (27.0-31.2); Mean Corpuscular Volume 83.4 fl (81-99); Mean Platelet Volume 8.8 fl (7.4-10.4); Monocytes # 0.7 K/mm3 (0.1-1.0); Monocytes % 6.5 % (1.7-9.3); Neutrophils # 7.4 K/mm3 (1.8-7.8); Neutrophils % 74.2 % (37.0-80.0); Platelet Count 222 K/mm3 (142-424); Red Blood Count 4.63 M/mm3 (4.20-5.40); Red Cell Distribution Width 16.2 % (11.5-17.5); White Blood Count 9.9 K/mm3 (4.8-10.8)
[2018-04-23 05:49] LABS: Anion Gap 17.3 mEq/L (5-15); Blood Urea Nitrogen 23 mg/dL (7-18); Calcium 8.3 mg/dL (8.5-10.1); Carbon Dioxide 22 mmol/L (21.0-32.0); Chloride 103 mmol/L (98-107); Glucose 256 mg/dL (74-106); Potassium 4.3 mmoL/L (3.5-5.1); Sodium 138 mmol/L (136-145)
--- NOTE | 2018-04-23 07:23 | Pharmacy Consult Notes ---
[facility] Pharmacy VTE Monitoring - Patient Demographics Admission date: 04/22/18 Report Date: 04/23/18 Time: 07:23 Allergies/Adverse Reactions: Patient Allergies Penicillins Allergy (Verified 04/19/18 10:12) lisinopril Adverse Reaction (Mild, Verified 04/19/18 10:12) Cough carvedilol Adverse Reaction (Unknown, Verified 04/19/18 10:12) seizures Height: 1.73 m Weight: 167.5 kg Patient Problems: Current Active Problems Renal insufficiency (Acute) Elevated TSH (Chronic) Obesity (Acute) Diabetes mellitus, insulin dependent (IDDM), uncontrolled (Chronic) HFrEF (heart failure with reduced ejection fraction) (Chronic) Heart palpitations (Acute) - VTE Risk Labs: VTE Related Lab Results Hgb 11.6 g/dL (12.2-16.2) L 04/23/18 05:20 Hct 38.6 % (37.0-47.0) 04/23/18 05:20 Plt Count 222 K/mm3 (142-424) 04/23/18 05:20 BUN 23 mg/dL (7-18) H 04/23/18 05:20 Creatinine 1.23 mg/dL (0.55-1.02) H 04/23/18 05:20 Estimated Creat Clear 50 mL/min (50-200) 04/23/18 05:20 VTE Risk Level: Low Risk - Prophylaxis VTE Prophylaxis Ordered?: Yes Types of VTE Prophylaxis: TEDS Knee High Location of Applied Device: Bilateral Lower Extremeties - VTE Diagnosis Confirmed Treatment or plan recommended: Continue Current Treatment
--- NOTE | 2018-04-23 08:16 | History & Physical Report ---
*Admission Date: 04/22/18 *Chief complaint: Shortness of air/palpitations *History of present illness: 58-year-old white female with history of CHF, systolic and diastolic, morbid obesity and hypothyroidism, who has been followed by [facility] cardiology over the past several months, came to the emergency room with a chief complaint of shortness of air, palpitations and some chest pressure. She gives a history of gaining 50 pounds in the past 3 weeks because her diuretics were continued after slight increase in her carvedilol dose caused seizure episodes. She reported to cardiac clinic last week her spironolactone and furosemide were restarted Note review of records reveals that she had a Holter monitor with a couple of runs of V. tach. This has not yet been addressed with cardiology She is admitted to hospital for rule out ME, cardiology evaluation and workup of ongoing potential dangerous arrhythmias and her CHF exacerbation. [facility] [place] History I have reviewed the patient's past medical history: Yes Medical History: Reports:: Atrial Fibrillation, Congestive Heart Failure, Diabetes Mellitus Type 1, Hypertension, MRSA Denies:: Cancer, Diabetes Mellitus Type 2, Internal Pacemaker, Seizures *Have you ever received a pneumonia vaccine?: Yes *Have you received a flu vaccine this season?: Yes Other Medical History: Reports: Anemia, Hypothyroidism Other Surgeries: Yes: Appendectomy, Cardiac Catheterization, Cholecystectomy, Hernia Repair (20), Tubal Ligation, Other (Partial Bowel Removal). No: Pacemaker Amputation: No Fractures: No - *Social History Educational Level: Completed High School Smoking Status: Former smoker Tobacco Type: cigarettes # Packs/Day (cigarettes): 1 #Yrs smoked (if former smoker): 40 Smoking End Date: 8 years ago Alcohol Intake: never Substance Use Type: denies use *Occupational Status:: unemployed, disabled Housing: house Household Members: family *Travel in the last 8 weeks: None - Psychiatric History Expresses thoughts of harming self/others: None Suicide Plan Description: No Plan Family Hx:: Coronary Artery Disease Review of Systems - Review of Systems Review of systems:: pertinent systems reviewed and negative unless documented below - Constitutional Denies anorexia, Denies body ache(s), Denies chills - Eyes Denies blind spots, Denies blurry vision - ENT Denies abnormal hearing - *Cardiovascular Reports chest pain, Reports excessive sweating, Reports shortness of breath, Reports shortness of breath with activity, Reports rapid, pounding, or irregular heartbeat, Denies chest pain at rest, Denies chest pain with activity - *Respiratory Denies change in phlegm color, Denies chest congestion - *Gastrointestinal Denies abdominal pain - *Musculoskeletal Reports abnormal walking - Integumentary/Breasts Denies acne, Denies hair loss, Denies change in skin color - *Neurologic Reports seizure-like activity - Psychiatric Denies abnormal sleep pattern, Denies lack of enjoyment Meds Home Medications Medication Instructions Recorded Confirmed Type Albuterol Sulfate [Albuterol HFA 1 - 2 puffs IH Q4-6H PRN 02/09/18 04/22/18 History Inhaler] Gabapentin 800 mg PO TID 02/09/18 04/22/18 History Insulin Aspart [Novolog Flexpen] 43 unit SQ BID 02/09/18 04/22/18 History Levothyroxine Sodium 175 mcg PO DAILY 02/09/18 04/22/18 History [Levothyroxine 175mcg (0.175mg) Tab] Lubiprostone [Amitiza] 24 mcg PO BID 02/09/18 04/22/18 History Pantoprazole Sodium [Protonix 40mg 40 mg PO HS 02/09/18 04/22/18 History tablet] Pregabalin [Lyrica 150mg Cap] 150 mg PO BID 02/09/18 04/22/18 History Sitagliptin Phosphate [Januvia 100 mg PO DAILY 02/09/18 04/22/18 History 100mg tablet] Tizanidine HCl [Zanaflex 4mg 4 mg PO TIDP PRN 02/09/18 04/22/18 History tablet] bisoprolol fumarate 10 mg tablet 10 mg PO DAILY #30 tab 03/13/18 04/22/18 Rx furosemide 40 mg tablet 40 mg PO BID #60 tab 04/19/18 04/22/18 Rx spironolactone 25 mg tablet 25 mg PO DAILY #30 tab 04/19/18 04/22/18 Rx Insulin Detemir [Levemir 100 60 unit SQ BID 04/22/18 04/22/18 History units/mL 10mL vial] Losartan Potassium 50 mg PO DAILY 04/22/18 04/22/18 History Fluoxetine HCl [Prozac 20mg 1 tab PO BID 04/23/18 04/23/18 History Capsule] Allergies Allergy/AdvReac Type Severity Reaction Status Date / Time Penicillins Allergy Verified 04/19/18 10:12 lisinopril AdvReac Mild Cough Verified 04/19/18 10:12 carvedilol AdvReac Unknown seizures Verified 04/19/18 10:12 Exam Vital signs and Labs for Last 24 Hours: Temp Pulse Resp BP Pulse Ox 97.8 F 68 25 H 128/77 97 04/23/18 04:00 04/23/18 04:00 04/23/18 04:00 04/23/18 04:00 04/23/18 04:00 Laboratory Results - last 24 hr 04/22/18 19:11: WBC 10.1, RBC 4.55, Hgb 11.4 L, Hct 38.7, MCV 85.2, MCH 25.1 L, MCHC 29.5 L, RDW 15.9, Plt Count 244, MPV 8.8, Neut % (Auto) 73.0, Lymph % (Auto) 20.6, [place] % (Auto) 5.1, Eos % (Auto) 1.0, Baso % (Auto) 0.4, Neut # (Auto) 7.4, Lymph # (Auto) 2.1, [place] # (Auto) 0.5, Eos # (Auto) 0.1, Baso # (Auto) 0.0 04/22/18 19:11: Sodium 138, Potassium 4.1, Chloride 102, Carbon Dioxide 26, Anion Gap 14.1, BUN 22 H, Creatinine 1.36 H, Estimated Creat Clear 50, Estimated GFR 40 L, Est GFR ( Amer) 48 L, Glucose 303 H, Calcium 8.4 L, Total Bilirubin 0.5, AST 16, ALT 22, Alkaline Phosphatase 77, Total Protein 6.9, Albumin 2.8 L, Globulin 4.1 H, Albumin/Globulin Ratio 0.7 L 04/22/18 19:11: Total Creatine Kinase 69, CK-MB (CK-2) 1.6, CK-MB (CK-2) Rel Index 2.3, Troponin I 0.02, TSH 12.76 H, Free T4 Index 2.9 L, Thyroxine (T4) 8.0, T3 Uptake 36 04/22/18 19:11: B-Natriuretic Peptide 958 H 04/23/18 02:00: Troponin I < 0.02 04/23/18 05:20: Sodium 138, Potassium 4.3, Chloride 103, Carbon Dioxide 22, Anion Gap 17.3 H, BUN 23 H, Creatinine 1.23 H, Estimated Creat Clear 50, Estimated GFR 45 L, Est GFR ( Amer) 54 L, Glucose 256 H, Calcium 8.3 L, Magnesium 1.6, Troponin I < 0.02 04/23/18 05:20: WBC 9.9, RBC 4.63, Hgb 11.6 L, Hct 38.6, MCV 83.4, MCH 25.1 L, MCHC 30.1 L, RDW 16.2, Plt Count 222, MPV 8.8, Neut % (Auto) 74.2, Lymph % (Auto) 17.6, [place] % (Auto) 6.5, Eos % (Auto) 1.4, Baso % (Auto) 0.3, Neut # (Auto) 7.4, Lymph # (Auto) 1.8, [place] # (Auto) 0.7, Eos # (Auto) 0.1, Baso # (Auto) 0.0 04/23/18 06:02: POC Glucose 219 H I & O for Last 24 hours: Intake & Output 04/20/18 04/21/18 04/22/18 04/23/18 11:59 11:59 11:59 11:59 Intake Total 257 / 257 Output Total 100 / 100 Balance 157 / 157 Weight 369 lb 4.388 oz Narrative: Patient is alert. Pleasant. Talkative. Morbid obese which limits her exam and complicates all aspects of her care. ENT exam otherwise clear. JVD is not able to be assessed. Movement but again obesity limits the active cardiopulmonary exam. Heart tones are distant. Occasional popping beat. Telemetry monitoring shows occasional PVCs. Abdomen is obese soft. No extremity perfusion problems. She has trace ankle edema in the shins. Able to move all extremities well. No asymmetric facial deficits. Assessment and Plan (1) Acute kidney injury Current visit: Yes Status: Acute Category: Medical Code(s): N17.9 - Acute kidney failure, unspecified Watch carefully --seems to be mild. (2) Heart palpitations Current visit: Yes Status: Acute Category: Medical Code(s): R00.2 - Palpitations Concerning given her PVCs and abnormal Holter reading and cardiology evaluation today. (3) Obesity Current visit: Yes Status: Chronic Qualifiers: Obesity type: due to excess calories Obesity classification: adult class 3 (BMI >= 40) Serious obesity comorbidity presence: with serious comorbidity Body mass index: BMI 45.0-49.9 Qualified Code(s): E66.01 - Morbid (severe) obesity due to excess calories; Z68.42 - Body mass index (BMI) 45.0-49.9, adult Category: Medical Code(s): E66.9 - Obesity, unspecified Complicates all aspects of her care (4) Diabetes mellitus, insulin dependent (IDDM), uncontrolled Current visit: Yes Status: Chronic Qualifiers: Glycemic state: with hyperglycemia Qualified Code(s): E10.65 - Type 1 diabetes mellitus with hyperglycemia Category: Medical Code(s): E10.65 - Type 1 diabetes mellitus with hyperglycemia Continue medicines and observation (5) Elevated TSH Current visit: Yes Status: Chronic Category: Medical Code(s): R79.89 - Other specified abnormal findings of blood chemistry (6) HFrEF (heart failure with reduced ejection fraction) Current visit: Yes Status: Chronic Qualifiers: Heart failure chronicity: acute on chronic Qualified Code(s): I50.23 - Acute on chronic systolic (congestive) heart failure Category: Medical Code(s): I50.20 - Unspecified systolic (congestive) heart failure
--- NOTE | 2018-04-23 11:15 | Consult Report ---
History of Present Illness Consult date: 04/23/18 (at 0915) Requesting physician: Howard Shaffer Consult reason: shortness of breath Chief complaint: SOB and palpitations History of present illness: This is a 58-year-old white female who was admitted to the hospital with shortness of breath and palpitations. The patient states that she had home and she has been progressively worse with her shortness of breath. She states that she has also had bilateral lower extremity edema. The patient has gained 48 pounds in the last month. She states that she was short of breath at rest with exertion she and she was unable to lie flat. The patient states that her symptoms just continue to progress. She was so short of breath that she decided to use her albuterol inhaler. After using her inhaler she did start to have palpitations and racing of the heart. She states that her heart was beating so fast that she felt as if it were going to beat out of her chest and caused her to have some pressure in her chest as well. The patient states that she did not feel well at all and decided to come into the emergency department. The patient was kept overnight due to her severe LV dysfunction and the concern for ventricular tachycardia in the setting of her dilated cardiomyopathy. She denies any fevers, chills, nausea, vomiting, diarrhea. The patient did have a Holter monitor placed on March 12. The Holter monitor was reviewed and this does show significant episodes of PVCs and ventricular couplets. Patient also had episodes of ventricular tachycardia lasting approximately 5 minutes. The patient reports that when she wore the Holter monitor she did come into the emergency department because of an episode where she states that her neck really hot and she was flushed. She states that she did not feel well her heart is racing and then she lost consciousness. Her daughter reports while she had her loss of consciousness she was kicking and she was diagnosed with a grandma seizure in the emergency department. Her carvedilol was stopped and she was switched to bisoprolol for this presumed grand mal seizure. However, on further review the patient had ventricular tachycardia while she was wearing this Holter monitor and that episode she experienced was most likely not a grand mal seizure and was symptomatic ventricular tachycardia in the setting of dilated cardiomyopathy/severe LV dysfunction. [facility] History I have reviewed the patient's past medical history: Yes Medical History: Reports:: Atrial Fibrillation, Congestive Heart Failure, Diabetes Mellitus Type 1, Hypertension, MRSA Denies:: Cancer, Diabetes Mellitus Type 2, Internal Pacemaker, Seizures *Have you ever received a pneumonia vaccine?: Yes *Have you received a flu vaccine this season?: Yes Other Medical History: Reports: Anemia, Hypothyroidism Other Surgeries: Yes: Appendectomy, Cardiac Catheterization, Cholecystectomy, Hernia Repair (20), Tubal Ligation, Other (Partial Bowel Removal). No: Pacemaker Amputation: No Fractures: No - *Social History Educational Level: Completed High School Smoking Status: Former smoker Tobacco Type: cigarettes # Packs/Day (cigarettes): 1 #Yrs smoked (if former smoker): 40 Smoking End Date: 8 years ago Alcohol Intake: never Substance Use Type: denies use *Occupational Status:: unemployed, disabled Housing: house Household Members: family *Travel in the last 8 weeks: None - Psychiatric History Expresses thoughts of harming self/others: None Suicide Plan Description: No Plan Family Hx:: Coronary Artery Disease Meds Home Medications Medication Instructions Recorded Confirmed Type Albuterol Sulfate [Albuterol HFA 1 - 2 puffs IH Q4-6H PRN 02/09/18 04/22/18 History Inhaler] Insulin Aspart [Novolog Flexpen] 43 unit SQ BID 02/09/18 04/22/18 History Levothyroxine Sodium 175 mcg PO DAILY 02/09/18 04/22/18 History [Levothyroxine 175mcg (0.175mg) Tab] Lubiprostone [Amitiza] 24 mcg PO BID 02/09/18 04/22/18 History Pantoprazole Sodium [Protonix 40mg 40 mg PO HS 02/09/18 04/22/18 History tablet] Pregabalin [Lyrica 150mg Cap] 150 mg PO BID 02/09/18 04/22/18 History Sitagliptin Phosphate [Januvia 100 mg PO DAILY 02/09/18 04/22/18 History 100mg tablet] Tizanidine HCl [Zanaflex 4mg 4 mg PO TIDP PRN 02/09/18 04/22/18 History tablet] bisoprolol fumarate 10 mg tablet 10 mg PO DAILY #30 tab 03/13/18 04/22/18 Rx furosemide 40 mg tablet 40 mg PO BID #60 tab 04/19/18 04/22/18 Rx spironolactone 25 mg tablet 25 mg PO DAILY #30 tab 04/19/18 04/22/18 Rx Insulin Detemir [Levemir 100 60 unit SQ BID 04/22/18 04/22/18 History units/mL 10mL vial] Losartan Potassium 50 mg PO DAILY 04/22/18 04/22/18 History Fluoxetine HCl [Prozac 20mg 20 mg PO BID 04/23/18 04/23/18 History Capsule] Gabapentin [Neurontin 800mg Tab] 800 mg PO TID 04/23/18 04/23/18 History Allergies Allergy/AdvReac Type Severity Reaction Status Date / Time Penicillins Allergy Verified 04/19/18 10:12 lisinopril AdvReac Mild Cough Verified 04/19/18 10:12 carvedilol AdvReac Unknown seizures Verified 04/19/18 10:12 Review of Systems - Review of Systems Review of systems:: pertinent systems reviewed and negative unless documented below - Constitutional Reports fatigue, Reports lack of energy - *Cardiovascular Reports chest pain, Reports shortness of breath, Reports shortness of breath with activity, Reports leg swelling, Reports shortness of breath when lying down, Reports rapid, pounding, or irregular heartbeat, Reports shortness of breath causing sudden awakening, Reports fast heart rate, Reports fainting - *Respiratory Reports shortness of breath, Reports shortness of breath with activity - *Neurologic Reports abnormal walking, Denies abnormal hearing - Endocrine Reports rapid, pounding, or irregular heartbeat Exam Vital signs and Labs for Last 24 Hours: Temp Pulse Resp BP Pulse Ox 98.2 F 50 L 17 108/53 L 96 04/23/18 08:00 04/23/18 08:00 04/23/18 08:00 04/23/18 08:00 04/23/18 08:00 Laboratory Results - last 24 hr 04/22/18 19:11: WBC 10.1, RBC 4.55, Hgb 11.4 L, Hct 38.7, MCV 85.2, MCH 25.1 L, MCHC 29.5 L, RDW 15.9, Plt Count 244, MPV 8.8, Neut % (Auto) 73.0, Lymph % (Auto) 20.6, [place] % (Auto) 5.1, Eos % (Auto) 1.0, Baso % (Auto) 0.4, Neut # (Auto) 7.4, Lymph # (Auto) 2.1, [place] # (Auto) 0.5, Eos # (Auto) 0.1, Baso # (Auto) 0.0 04/22/18 19:11: Sodium 138, Potassium 4.1, Chloride 102, Carbon Dioxide 26, Anion Gap 14.1, BUN 22 H, Creatinine 1.36 H, Estimated Creat Clear 50, Estimated GFR 40 L, Est GFR ( Amer) 48 L, Glucose 303 H, Calcium 8.4 L, Total Bilirubin 0.5, AST 16, ALT 22, Alkaline Phosphatase 77, Total Protein 6.9, Albumin 2.8 L, Globulin 4.1 H, Albumin/Globulin Ratio 0.7 L 04/22/18 19:11: Total Creatine Kinase 69, CK-MB (CK-2) 1.6, CK-MB (CK-2) Rel Index 2.3, Troponin I 0.02, TSH 12.76 H, Free T4 Index 2.9 L, Thyroxine (T4) 8.0, T3 Uptake 36 04/22/18 19:11: B-Natriuretic Peptide 958 H 04/23/18 02:00: Troponin I < 0.02 04/23/18 05:20: Sodium 138, Potassium 4.3, Chloride 103, Carbon Dioxide 22, Anion Gap 17.3 H, BUN 23 H, Creatinine 1.23 H, Estimated Creat Clear 50, Estimated GFR 45 L, Est GFR ( Amer) 54 L, Glucose 256 H, Calcium 8.3 L, Magnesium 1.6, Troponin I < 0.02 04/23/18 05:20: WBC 9.9, RBC 4.63, Hgb 11.6 L, Hct 38.6, MCV 83.4, MCH 25.1 L, MCHC 30.1 L, RDW 16.2, Plt Count 222, MPV 8.8, Neut % (Auto) 74.2, Lymph % (Auto) 17.6, [place] % (Auto) 6.5, Eos % (Auto) 1.4, Baso % (Auto) 0.3, Neut # (Auto) 7.4, Lymph # (Auto) 1.8, [place] # (Auto) 0.7, Eos # (Auto) 0.1, Baso # (Auto) 0.0 04/23/18 06:02: POC Glucose 219 H I & O for Last 24 hours: Intake & Output 04/20/18 04/21/18 04/22/18 04/23/18 23:59 23:59 23:59 23:59 Intake Total 257 / 257 Output Total 100 / 100 Balance 157 / 157 Weight 369 lb 4.388 oz 369 lb 4.388 oz Narrative: Her telemetry strip is sinus rhythm with a rate of 57. Her Holter monitor does show episodes of ventricular tachycardia approximately 5 minutes. - Constitutional no acute distress, morbidly obese - *Routine HEENT Exam Head: Present: normocephalic, atraumatic Eye: Present: EOMI, PERRL ENT: Present: mucous membranes moist - *Routine Neck Exam Present: supple, full ROM. Absent: JVD, carotid bruit, lymphadenopathy - *Routine Respiratory Exam Present: decreased breath sounds, rales - *Routine Cardiovascular Exam Present: RRR, Normal S1, Normal S2. Absent: murmur, gallop - *Routine Abdominal Exam Present: soft, normoactive bowel sounds, distended. Absent: tenderness - *Routine Extremities Exam Present: edema, pulses intact. Absent: cyanosis, clubbing - *Routine Skin Exam Present: intact, warm. Absent: erythema, rash - *Routine Neurological Exam Present: alert, oriented X3, CN II-XII intact. Absent: sensory deficit, motor deficit - Routine Psychiatric Exam Present: normal affect, normal thought process - Detailed Eye Exam Eyelids: Left normal inspection Assessment and Plan (1) Ventricular tachycardia Current visit: Yes Status: Acute Category: Medical Code(s): I47.2 - Ventricular tachycardia (2) Heart palpitations Current visit: Yes Status: Acute Category: Medical Code(s): R00.2 - Palpitations (3) HFrEF (heart failure with reduced ejection fraction) Current visit: Yes Status: Chronic Qualifiers: Heart failure chronicity: acute on chronic Qualified Code(s): I50.23 - Acute on chronic systolic (congestive) heart failure Category: Medical Code(s): I50.20 - Unspecified systolic (congestive) heart failure (4) Acute kidney injury Current visit: Yes Status: Acute Category: Medical Code(s): N17.9 - Acute kidney failure, unspecified (5) Obesity Current visit: Yes Status: Chronic Qualifiers: Obesity type: due to excess calories Obesity classification: adult class 3 (BMI >= 40) Serious obesity comorbidity presence: with serious comorbidity Body mass index: BMI 45.0-49.9 Qualified Code(s): E66.01 - Morbid (severe) obesity due to excess calories; Z68.42 - Body mass index (BMI) 45.0-49.9, adult Category: Medical Code(s): E66.9 - Obesity, unspecified (6) Diabetes mellitus, insulin dependent (IDDM), uncontrolled Current visit: Yes Status: Chronic Qualifiers: Glycemic state: with hyperglycemia Qualified Code(s): E10.65 - Type 1 diabetes mellitus with hyperglycemia Category: Medical Code(s): E10.65 - Type 1 diabetes mellitus with hyperglycemia (7) Atrial fibrillation, new onset Current visit: No Status: Acute Category: Medical Code(s): I48.91 - U nspecified atrial fibrillation (8) Morbid obesity Current visit: No Status: Chronic Category: Medical Code(s): E66.01 - Morbid (severe) obesity due to excess calories (9) HTN (hypertension) Current visit: No Status: Chronic Qualifiers: Hypertension type: essential hypertension Qualified Code(s): I10 - Essential (primary) hypertension Category: Medical Code(s): I10 - Essential (primary) hypertension (10) Pulmonary hypertension Current visit: No Status: Chronic Category: Medical Code(s): I27.20 - Pulmonary hypertension, unspecified (11) Dilated cardiomyopathy Current visit: Yes Status: Acute Category: Medical Code(s): I42.0 - Dilated cardiomyopathy (12) Severe left ventricular systolic dysfunction Current visit: Yes Status: Acute Category: Medical Code(s): I51.9 - Heart disease, unspecified - Assessment and plan all Dx Assessment and Plan for all problems:: Plan: 1. The patient was admitted to the hospital with shortness of breath and palpitations. The patient is having an acute on chronic exacerbation of her systolic congestive heart failure. The patient does have severe LV dysfunction and dilated cardiomyopathy. She is gained 48 pounds in the last month. She is unable to lie flat due to her shortness of breath. Given her shortness of breath edema and systolic congestive heart failure we will stop her oral Lasix and put her on Lasix 80 mg IV twice daily. 2. We will stop her IV fluids due to her congestive heart failure. 3. The patient has normal coronary arteries. No plans for invasive left cardiac catheterization at this time. 4. Her blood pressure is well controlled. 5. Her LDL goal is less than 100. 6. The patient also came in having palpitations and racing of the heart. She states that her shortness of breath got so severe that she used albuterol and after using albuterol her heart began to race. She states that this was associated with pressure in her chest as well and decided to come into the emergency department. There was concern that she could be having a ventricular arrhythmia in the setting of severe LV dysfunction and apathy so the patient was kept overnight for observation and for potential loop recorder placement today. However, the patient did wear a Holter monitor back around March 12. During that time the patient had an episode where she got really hot and flushed and her heart was racing and then she passed out and her daughter states that while she was passed out she was kicking her legs and she did come into the emergency department after this episode and was diagnosed with a grand mall seizure. She did have a Holter monitor in place during this episode which does show that she had episodes of ventricular tachycardia lasting approximately 5 minutes. The patient did not have a grand mal seizure she was in fact having symptomatic ventricular tachycardia. 7. The patient does not need to be on antiseizure medications as that episode she was experiencing and the subsequent episodes of seizures are in fact symptomatic ventricular tachycardia. 8. Her echocardiogram today was a limited echocardiogram. Her ejection fraction remains around 30-35%. 9. Given her severe LV dysfunction, dilated cardiomyopathy, and symptomatic ventricular tachycardia the patient will need an AICD placed as she is at increased risk of sudden cardiac . The patient has been educated on the risks and benefits of proceeding with AICD placement. The patient has verbalized understanding and is agreeable in proceeding with the procedure. 10. She is currently unable to lie flat so will continue to diurese her with IV Lasix today and tomorrow to get some fluid off and then plan to place her AICD on Monday once she has been diuresed. 11. The patient did have episodes of atrial fibrillation on a previous hospitalization. She was supposed to be sent home on Eliquis because she had concerns about Xarelto. However the patient was never sent home on anticoagulation. Before discharge here from the hospital she will need oral anticoagulation for her atrial fibrillation and high CHADS VASc score. 12. I have had a long discussion with the patient about her oral fluid intake and only drinking when she is thirsty. I have also advised the patient that when she is discharged from the hospital she does need to be weighing herself daily on a digital scale and increasing her diuretics for weight gain of 2 pounds overnight or 5 pounds in a week. The patient and her daughter have both verbalized understanding. 14. Weight loss is highly encouraged and advised. 15. Patient does have chronic kidney disease. Will recheck her renal function in the morning continue to follow her renal function closely. 16. Further recommendations will be made pending the patient's response to treatment. Thank you for the opportunity to help participate in the care of this patient.
--- NOTE | 2018-04-23 19:35 | Cardiology Report ---
PROCEDURE: Limited echocardiogram INDICATIONS FOR THE TEST: Chest pain COPD Heart Murmur+ Tobacco Smoking Palpitations+ Fatigue Syncope Edema Hypertension+Diabetes Mellitus+ Rheumatic Fever SOB+SIDHU Obesity+Hyperlipidemia Family History HD Additional History AFIB, CHF, ARRHYTHMIA, PATIENT INFORMATION HEIGHT: 71 WEIGHT:370 GENDER: Female B/P:91/55 2-D/M-MODE INTERPRETATION: 2-D MEASUREMENTS OBSERVED VALUES IN CMS Right Ventricular Dimension (RVDd) 2.4 Interventricular Septum (Thickness)(IVsd) 1.9 Left Ventricular Internal Dimensions(LVIDd) 6.5 Left Ventricular Posterior Wall (Thickness)(LVPWd) 1.2 Aortic Root 3.5 Aortic Cusp Separation 1.9 Left Atrial Dimensions (LAD) 5.1 2D 1. Very poor quality Limited echocardiogram to the patient's factor with acoustic windows, if clinically indicated repeat study with Definity contrast is recommended. 2. Probably reduced left ventricular systolic function, visually estimated to fraction in the obtained views is not more than 35%. Segmental wall motion analysis cannot be made from this study. 3. The right-sided chambers are not well visualized. 4. The valvular structures poorly visualized, aortic valve is thickened and calcified with restriction the leaflet mobility 5. Mitral valve leaflets are minimally thickened and fibrosed. 6. The tricuspid valve is minimally thickened. 7. Pulmonic valve is poorly visualized. 8. No significant pericardial effusion noted. DOPPLER INTERROGATION: Limited Doppler is consistent with moderate tricuspid regurgitation, degree of aortic stenosis cannot be ascertain from this study. CONCLUSION: 1. Very poor quality Limited echocardiogram, because of the patient's factor and poor acoustic windows. 2. Probably less than 35% ejection fraction segmental wall motion abnormality cannot be ascertain from this study. 3. The valvular structures are poorly visualized as described above.
[2018-04-24 06:46] LABS: Basophils % 0.4 % (0.1-2.0); Eosinophils # 0.1 K/mm3 (0.0-0.4); Eosinophils % 0.9 % (0.1-12.0); Hematocrit 39.7 % (37.0-47.0); Hemoglobin 12.1 g/dL (12.2-16.2); Lymphocytes # 1.8 K/mm3 (0.7-4.5); Lymphocytes % 18.3 % (10-50); Mean Corpuscular HGB Conc 30.5 g/dL (31.8-35.4); Mean Corpuscular Hemoglobin 25.6 pg (27.0-31.2); Mean Platelet Volume 8.9 fl (7.4-10.4); Monocytes # 0.6 K/mm3 (0.1-1.0); Monocytes % 6.1 % (1.7-9.3); Neutrophils # 7.5 K/mm3 (1.8-7.8); Neutrophils % 74.3 % (37.0-80.0); Platelet Count 206 K/mm3 (142-424); Red Blood Count 4.72 M/mm3 (4.20-5.40); Red Cell Distribution Width 16.1 % (11.5-17.5); White Blood Count 10.1 K/mm3 (4.8-10.8)
[2018-04-24 06:56] LABS: Anion Gap 11.1 mEq/L (5-15); Calcium 8.9 mg/dL (8.5-10.1); Chol/HDL Ratio 4.7 (1-3.5); Potassium 3.1 mmoL/L (3.5-5.1)
--- NOTE | 2018-04-24 07:52 | Progress Note ---
Internal Medicine - PN: Subj *Date: 04/24/18 *Time: 08:20 Interval history: Patient continued to diurese well overnight. -5 L past 24 hours. The patient was diagnosed with E. coli enteritis yesterday. Had 5-6 loose watery stools that resolved yesterday evening. Mild nausea, emesis. Denies chest pain, reports improved shortness of breath. Able to lie flat last night to sleep given her diuresis. stable oxygen requirement Exam Vital signs and Labs for Last 24 Hours: Temp Pulse Resp BP Pulse Ox 97.6 F 78 18 133/73 96 04/24/18 04:00 04/24/18 04:00 04/24/18 04:00 04/24/18 04:00 04/24/18 04:00 Laboratory Results - last 24 hr 04/23/18 11:46: POC Glucose 211 H 04/23/18 14:09: Stl Aeromonas (PCR) Not detected, Stl C. cayetanensis PCR Not detected, Stool Rotavirus (PCR) Not detected, Stl Adenov F 40/41 PCR Not detected, Stool Astrovirus (PCR) Not detected, Stool Campylobacter PCR Not detected, Stl C.difficile Tox PCR Not detected, Stool Cryptosporidium PCR Not detected, Stl E.coli Shiga Tox PCR Not detected, Stool E coli O157 PCR Not detected, Stl Enterotoxigenic E PCR Not detected, Stool EPEC (PCR) Not detected, Stool EAEC (PCR) Detected A, Stl E. histolytica PCR Not detected, Stool Giardia Lamblia PCR Not detected, Stool Salmonella PCR Not detected, Stool Sapovirus (PCR) Not detected, Stl P. shigelloides PCR Not detected, Stl Shigella/EIEC PCR Not detected, St Y.enterocolitica PCR Not detected, Stool Vibrio (PCR) Not detected, Stl Vibrio cholerae PCR Not detected, Stl Norovirus GI/GII PCR Not detected 04/23/18 15:39: POC Glucose 226 H 04/23/18 20:26: POC Glucose 222 H 04/24/18 06:00: POC Glucose 184 H 04/24/18 06:35: WBC 10.1, RBC 4.72, Hgb 12.1 L, Hct 39.7, MCV 84.0, MCH 25.6 L, MCHC 30.5 L, RDW 16.1, Plt Count 206, MPV 8.9, Neut % (Auto) 74.3, Lymph % (Auto) 18.3, [place] % (Auto) 6.1, Eos % (Auto) 0.9, Baso % (Auto) 0.4, Neut # (Auto) 7.5, Lymph # (Auto) 1.8, [place] # (Auto) 0.6, Eos # (Auto) 0.1, Baso # (Auto) 0.0 04/24/18 06:35: Sodium 143, Potassium 3.1 L D, Chloride 103, Carbon Dioxide 32 D, Anion Gap 11.1, BUN 17 D, Creatinine 1.28 H, Estimated Creat Clear 48, Estimated GFR 43 L, Est GFR ( Amer) 52 L, Glucose 196 H, Calcium 8.9, Triglycerides 90, Cholesterol 121 L, LDL Cholesterol 77, VLDL Cholesterol 18, HDL Cholesterol 26 L, Cholesterol/HDL Ratio 4.7 H I & O for Last 24 hours: Intake & Output 04/21/18 04/22/18 04/23/18 04/24/18 23:59 23:59 23:59 23:59 Intake Total 617 / 617 Output Total 4650 / 4650 1800 / 1800 Balance -4033 / -4033 -1800 / -1800 Weight 167.5 kg 167.376 kg 158.3 kg - *Routine HEENT Exam Head: Present: normocephalic, atraumatic Eye: Present: EOMI, PERRL ENT: Present: mucous membranes moist - *Routine Neck Exam Present: supple, full ROM. Absent: JVD - *Routine Respiratory Exam Comments: Distant breath sounds, oxygen. Clear in anterior lung blue - *Routine Cardiovascular Exam Present: RRR, Normal S1 - *Routine Abdominal Exam Present: soft, normoactive bowel sounds Comments: obese - *Routine Rectal Exam Patient deferred: visual exam - *Routine Exam Patient deferred: external exam - *Routine Extremities Exam Present: edema (Trace). Absent: cyanosis, clubbing - *Routine Skin Exam Present: intact - *Routine Neurological Exam Present: alert, oriented X3. Absent: altered mental status Assessment and Plan (1) Ventricular tachycardia Current visit: Yes Status: Acute Category: Medical Code(s): I47.2 - Ventricular tachycardia (2) Heart palpitations Current visit: Yes Status: Acute Category: Medical Code(s): R00.2 - Palpitations (3) HFrEF (heart failure with reduced ejection fraction) Current visit: Yes Status: Chronic Qualifiers: Heart failure chronicity: acute on chronic Qualified Code(s): I50.23 - Acute on chronic systolic (congestive) heart failure Category: Medical Code(s): I50.20 - Unspecified systolic (congestive) heart failure (4) Acute kidney injury Current visit: Yes Status: Acute Category: Medical Code(s): N17.9 - Acute kidney failure, unspecified (5) Obesity Current visit: Yes Status: Chronic Qualifiers: Obesity type: due to excess calories Obesity classification: adult class 3 (BMI >= 40) Serious obesity comorbidity presence: with serious comorbidity Body mass index: BMI 45.0-49.9 Qualified Code(s): E66.01 - Morbid (severe) obesity due to excess calories; Z68.42 - Body mass index (BMI) 45.0-49.9, adult Category: Medical Code(s): E66.9 - Obesity, unspecified (6) Diabetes mellitus, insulin dependent (IDDM), uncontrolled Current visit: Yes Status: Chronic Qualifiers: Glycemic state: with hyperglycemia Qualified Code(s): E10.65 - Type 1 diabetes mellitus with hyperglycemia Category: Medical Code(s): E10.65 - Type 1 diabetes mellitus with hyperglycemia (7) Atrial fibrillation, new onset Current visit: No Status: Acute Category: Medical Code(s): I48.91 - Unspecified atrial fibrillation (8) Morbid obesity Current visit: No Status: Chronic Category: Medical Code(s): E66.01 - Morbid (severe) obesity due to excess calories (9) HTN (hypertension) Current visit: No Status: Chronic Qualifiers: Hypertension type: essential hypertension Qualified Code(s): I10 - Essential (primary) hypertension Category: Medical Code(s): I10 - Essential (primary) hypertension (10) Pulmonary hypertension Current visit: No Status: Chronic Category: Medical Code(s): I27.20 - Pulmonary hypertension, unspecified (11) Dilated cardiomyopathy Current visit: Yes Status: Acute Category: Medical Code(s): I42.0 - Dilated cardiomyopathy (12) Severe left ventricular systolic dysfunction Current visit: Yes Status: Acute Category: Medical Code(s): I51.9 - Heart disease, unspecified - Assessment and plan all Dx Assessment and Plan for all problems:: Patient has responded well to diuresis, no acute events overnight. Gastroenteritis resolving on its own. At this time planning to go to [employer] [facility] this morning for placement of AICD as patient is now able to lay supine necessary for this procedure. No other changes in management. Will likely keep patient admitted overnight to monitor for tolerance of AICD and any further events on telemetry.
--- NOTE | 2018-04-24 08:42 | Progress Note ---
Subjective Date: 04/24/18 Time: 08:40 Principal diagnosis: V. tach, CHF Interval history: 58-year-old white female in bed in no acute distress. She is diuresed almost 6 L since admission. No further episodes of diarrhea for more than 12 hours. Review of telemetry shows only brief episode of nonsustained ventricular tachycardia early this a.m. of less than 10 beats. Exam Vital signs and Labs for Last 24 Hours: Temp Pulse Resp BP Pulse Ox 98.1 F 83 18 176/84 H 96 04/24/18 08:00 04/24/18 08:00 04/24/18 08:00 04/24/18 08:00 04/24/18 08:00 Laboratory Results - last 24 hr 04/23/18 11:46: POC Glucose 211 H 04/23/18 14:09: Stl Aeromonas (PCR) Not detected, Stl C. cayetanensis PCR Not detected, Stool Rotavirus (PCR) Not detected, Stl Adenov F 40/41 PCR Not detected, Stool Astrovirus (PCR) Not detected, Stool Campylobacter PCR Not detected, Stl C.difficile Tox PCR Not detected, Stool Cryptosporidium PCR Not detected, Stl E.coli Shiga Tox PCR Not detected, Stool E coli O157 PCR Not detected, Stl Enterotoxigenic E PCR Not detected, Stool EPEC (PCR) Not detected, Stool EAEC (PCR) Detected A, Stl E. histolytica PCR Not detected, Stool Giardia Lamblia PCR Not detected, Stool Salmonella PCR Not detected, Stool Sapovirus (PCR) Not detected, Stl P. shigelloides PCR Not detected, Stl Shigella/EIEC PCR Not detected, St Y.enterocolitica PCR Not detected, Stool Vibrio (PCR) Not detected, Stl Vibrio cholerae PCR Not detected, Stl Norovirus GI/GII PCR Not detected 04/23/18 15:39: POC Glucose 226 H 04/23/18 20:26: POC Glucose 222 H 04/24/18 06:00: POC Glucose 184 H 04/24/18 06:35: WBC 10.1, RBC 4.72, Hgb 12.1 L, Hct 39.7, MCV 84.0, MCH 25.6 L, MCHC 30.5 L, RDW 16.1, Plt Count 206, MPV 8.9, Neut % (Auto) 74.3, Lymph % (Auto) 18.3, [place] % (Auto) 6.1, Eos % (Auto) 0.9, Baso % (Auto) 0.4, Neut # (Auto) 7.5, Lymph # (Auto) 1.8, [place] # (Auto) 0.6, Eos # (Auto) 0.1, Baso # (Auto) 0.0 04/24/18 06:35: Sodium 143, Potassium 3.1 L D, Chloride 103, Carbon Dioxide 32 D, Anion Gap 11.1, BUN 17 D, Creatinine 1.28 H, Estimated Creat Clear 48, Estimated GFR 43 L, Est GFR ( Amer) 52 L, Glucose 196 H, Calcium 8.9, Triglycerides 90, Cholesterol 121 L, LDL Cholesterol 77, VLDL Cholesterol 18, HDL Cholesterol 26 L, Cholesterol/HDL Ratio 4.7 H I & O for Last 24 hours: Intake & Output 04/21/18 04/22/18 04/23/18 04/24/18 11:59 11:59 11:59 11:59 Intake Total 257 / 257 360 / 360 Output Total 100 / 100 6350 / 6350 Balance 157 / 157 -5990 / -5990 Weight 369 lb 348 lb 15.868 oz - *Routine Respiratory Exam Present: CTA bilaterally. Absent: accessory muscle use, rales, rhonchi, wheezes - *Routine Cardiovascular Exam Present: RRR. Absent: murmur, gallop, rubs - *Routine Extremities Exam Present: edema. Absent: calf tenderness Progress Note: A&P (1) Ventricular tachycardia Status: Acute Current Visit: Yes (2) Heart palpitations Status: Acute Current Visit: Yes (3) HFrEF (heart failure with reduced ejection fraction) Status: Chronic Current Visit: Yes (4) Acute kidney injury Status: Acute Current Visit: Yes (5) Obesity Status: Chronic Current Visit: Yes (6) Diabetes mellitus, insulin dependent (IDDM), uncontrolled Status: Chronic Current Visit: Yes (7) Atrial fibrillation, new onset Status: Acute Current Visit: No (8) Morbid obesity Status: Chronic Current Visit: No (9) HTN (hypertension) Status: Chronic Current Visit: No (10) Pulmonary hypertension Status: Chronic Current Visit: No (11) Dilated cardiomyopathy Status: Acute Current Visit: Yes (12) Severe left ventricular systolic dysfunction Status: Acute Current Visit: Yes Assessment and Plan for All Diagnoses:: Pt is able to lie flat therefore we will proceed with placement of dual chamber ICD today. COntinue current meds.
--- NOTE | 2018-04-24 10:24 | Progress Note ---
[facility] Anest[facility] Check[facility] - Patient Identification Patient Identification: Arm Band, Verbal (Name & ) - Structural Data Admitted From: Inpatient Planned Operative Procedure/s: AICD Consent for Planned Operative Procedure(s) Verified: Yes Verified Documents: History and Physical - NPO Status Verified Time NPO: 00:00 - Additional verifications Patient : No Anesthesia Reactions: No Hx Blood Transfusions: No Blood Transfusion Reaction: No Cephalosporin Allergy: No Previous Colonoscopy: No - Cardiovascular Assessment Heart Sounds: S1 & S2 Pulse Strength: Baseline Pulse Rhythm: Regular Peripheral Edema: No - Airway Assessment C-Spine Mobility Assessed: Yes TMJ Mobility Assessed: Yes Dentition: Good Dentition - Neurological Assessment Level of Consciousness: Awake, Alert, Appropriate Hx Seizures: No Numbness or tingling in extremities: No - Anesthesia Plan Anesthesia Risk discussed: Yes Anesthesia Plan: Verified ASA Class: IV Anesthesia Type: [facility] History I have reviewed the patient's past medical history: Yes Medical History: Reports:: Atrial Fibrillation, Congestive Heart Failure, Diabetes Mellitus Type 1, Hypertension, MRSA Denies:: Cancer, Diabetes Mellitus Type 2, Internal Pacemaker, Seizures *Have you ever received a pneumonia vaccine?: Yes *Have you received a flu vaccine this season?: Yes Other Medical History: Reports: Anemia, Hypothyroidism Other Surgeries: Yes: Appendectomy, Cardiac Catheterization, Cholecystectomy, Hernia Repair (20), Tubal Ligation, Other (Partial Bowel Removal). No: Pacemaker Amputation: No Fractures: No - *Social History Educational Level: Completed High School Smoking Status: Former smoker Tobacco Type: cigarettes # Packs/Day (cigarettes): 1 #Yrs smoked (if former smoker): 40 Smoking End Date: 8 years ago Alcohol Intake: never Substance Use Type: denies use *Occupational Status:: unemployed, disabled Housing: house Household Members: family *Travel in the last 8 weeks: None - Psychiatric History Expresses thoughts of harming self/others: None Suicide Plan Description: No Plan Family Hx:: Coronary Artery Disease
--- NOTE | 2018-04-24 15:39 | Progress Note ---
[facility] Anesthesia Record Part I Intake, IV Amount: 600 Estimated blood loss (mL): 15 Urine output (mL): 0 Blood Products used (#): none Blood Pressure: 135/65 SaO2: 92 Pulse Rate: 81 Respiratory Rate: 16 Temperature: 97.5 F Patient is:: Awake, Nasal O2, Stable Stable to PACU at:: 15:35
--- NOTE | 2018-04-24 15:40 | Progress Note ---
[facility] Anesthesia Record Part II Discharge Time: 16:05 Destination: Medical Surgical Department PACU nurse assessment reviewed?: Yes Patient Condition:: Good Anesthesia Complications:: None Swallowing reflex intact?: Yes Cyanosis?: No
[2018-04-25 07:37] LABS: Anion Gap 13.4 mEq/L (5-15); Calcium 8.7 mg/dL (8.5-10.1); Potassium 3.4 mmoL/L (3.5-5.1)
--- NOTE | 2018-04-25 08:09 | Discharge Summary ---
General - General Admission date:: 04/24/18 Discharge date: 04/25/18 HPI HPI: 58-year-old white female with history of CHF, systolic and diastolic, morbid obesity and hypothyroidism, who has been followed by [facility] cardiology over the past several months, came to the emergency room with a chief complaint of shortness of air, palpitations and some chest pressure. She gives a history of gaining 50 pounds in the past 3 weeks because her diuretics were continued after slight increase in her carvedilol dose caused seizure episodes. She reported to cardiac clinic last week her spironolactone and furosemide were restarted Note review of records reveals that she had a Holter monitor with a couple of runs of V. tach. This has not yet been addressed with cardiology She is admitted to hospital for rule out [place], cardiology evaluation and workup of ongoing potential dangerous arrhythmias and her CHF exacerbation. Hospital Course Hospital Course: Patient was admitted to hospital. Ruled out for myocardial infarction. Given her history of multiple episodes of V. tach on Holter monitor previously as well as significant bradycardia she was subjected to AICD placement after diuresis produced much better fluid status. Please see cardiology notes for details of her procedure This morning patient was doing well. Wound status looks great from the AICD placement. She will be discharged home to follow-up with her regular family practitioner and cardiology as noted. She will continue diuretics and beta- blockers -cardiology recommended increasing dose of bisoprolol to 10 mg twice daily. Patient will remain on angiotensin receptor kemal and her diuretics. Her creatinine has slightly increased to 1.5 but this does not appear to be significant over her baseline. I would recommend BMP as an outpatient to assess ongoing diuretic and angiotensin receptor kemal therapy. Objective Vital signs: Temp Pulse Resp BP Pulse Ox 97.1 F L 99 H 18 143/64 H 91 L 04/25/18 04:00 04/25/18 05:22 04/25/18 04:00 04/25/18 04:00 04/25/18 04:00 Narrative: Patient is pleasant, talkative, and in fact exhibits some hypomanic tendencies. She apparently has been awake for the last 3 days in the hospital according to her report. Oropharynx is clear. No JVD noted but her morbid obesity limits exam accuracy. AICD wound site looks great. Good distal perfusion. Heart rate regular. Lungs are clear and well-expanded. Morbid obesity noted. Neurologic examination otherwise nonfocal. Results Labs on day of discharge: Labs from last 24 hours 04/25/18 04/25/18 04/24/18 06:49 05:36 19:58 Sodium 141 Potassium 3.4 L Chloride 100 Carbon Dioxide 31 Anion Gap 13.4 BUN 16 Creatinine 1.54 H D Estimated Creat Clear 40 Estimated GFR 35 L Est GFR ( Amer) 42 L Glucose 269 H POC Glucose 260 H 246 H Calcium 8.7 04/24/18 16:39 Sodium Potassium Chloride Carbon Dioxide Anion Gap BUN Creatinine Estimated Creat Clear Estimated GFR Est GFR ( Amer) Glucose POC Glucose 200 H Calcium DS: Diagnosis - Discharge Diagnosis (1) Ventricular tachycardia Status: Resolved (2) Heart palpitations Status: Resolved (3) HFrEF (heart failure with reduced ejection fraction) Status: Chronic (4) Acute kidney injury Status: Acute (5) Obesity Status: Chronic (6) Diabetes mellitus, insulin dependent (IDDM), uncontrolled Status: Chronic (7) Atrial fibrillation, new onset Status: Chronic (8) Morbid obesity Status: Chronic (9) HTN (hypertension) Status: Chronic (10) Pulmonary hypertension Status: Chronic (11) Dilated cardiomyopathy Status: Chronic (12) Severe left ventricular systolic dysfunction Status: Acute Discharge Plan - Patient Discharge Instructions ACTIVITY: Continue current activity DIET: continue same diet, cardiac Patient Instructions: Thyroid Stimulating Hormone, Arrhythmias, Echocardiogram, Escherichia coli Infection, Transesophageal Echocardiography, DI for Pacemaker Insertion, MP3 (iPod) Headphones Near ICD or Pacemaker May Cause Problems, DI for Arrhythmias, DI for Surgical Site Infection, Low-Sodium Diet, DI for Palpitations - Follow up Plan Follow up with: Raad Ocampo [Primary Care Provider] - 04/30/18 Tirso Gold MD [Staff Physician] - 1 week Disposition: Home, Self-[facility] Medications: Home Medications Medication Instructions Recorded Confirmed Type Albuterol Sulfate [Albuterol HFA 1 - 2 puffs IH Q4-6H PRN 02/09/18 04/22/18 History Inhaler] Insulin Aspart [Novolog Flexpen] 43 unit SQ BID 02/09/18 04/22/18 History Levothyroxine Sodium 175 mcg PO DAILY 02/09/18 04/22/18 History [Levothyroxine 175mcg (0.175mg) Tab] Lubiprostone [Amitiza] 24 mcg PO BID 02/09/18 04/22/18 History Pantoprazole Sodium [Protonix 40mg 40 mg PO HS 02/09/18 04/22/18 History tablet] Pregabalin [Lyrica 150mg Cap] 150 mg PO BID 02/09/18 04/22/18 History Sitagliptin Phosphate [Januvia 100 mg PO DAILY 02/09/18 04/22/18 History 100mg tablet] Tizanidine HCl [Zanaflex 4mg 4 mg PO TIDP PRN 02/09/18 04/22/18 History tablet] furosemide 40 mg tablet 40 mg PO BID #60 tab 04/19/18 04/22/18 Rx spironolactone 25 mg tablet 25 mg PO DAILY #30 tab 04/19/18 04/22/18 Rx Insulin Detemir [Levemir 100 60 unit SQ BID 04/22/18 04/22/18 History units/mL 10mL vial] Losartan Potassium 50 mg PO DAILY 04/22/18 04/22/18 History Fluoxetine HCl [Prozac 20mg 20 mg PO BID 04/23/18 04/23/18 History Capsule] Gabapentin [Neurontin 800mg Tab] 800 mg PO TID 04/23/18 04/23/18 History Bisoprolol Fumarate [Bisoprolol 10 mg PO BID #60 tab 04/25/18 Rx 10mg Tablet] Prescriptions/Medication Reconciliation: Continue furosemide 40 mg tablet 40 mg PO BID #60 tab spironolactone 25 mg tablet 25 mg PO DAILY #30 tab Sitagliptin Phosphate [Januvia 100mg tablet] 100 mg PO DAILY Pregabalin [Lyrica 150mg Cap] 150 mg PO BID Albuterol Sulfate [Albuterol HFA Inhaler] 1 - 2 puffs IH Q4-6H PRN PRN Reason: Shortness Of Breath Insulin Aspart [Novolog Flexpen] 43 unit SQ BID Levothyroxine Sodium [Levothyroxine 175mcg (0.175mg) Tab] 175 mcg PO DAILY Tizanidine HCl [Zanaflex 4mg tablet] 4 mg PO TIDP PRN PRN Reason: PAIN Losartan Potassium 50 mg PO DAILY Fluoxetine HCl [Prozac 20mg Capsule] 20 mg PO BID Lubiprostone [Amitiza] 24 mcg PO BID Pantoprazole Sodium [Protonix 40mg tablet] 40 mg PO HS Insulin Detemir [Levemir 100 units/mL 10mL vial] 60 unit SQ BID Gabapentin [Neurontin 800mg Tab] 800 mg PO TID Changed Bisoprolol Fumarate [Bisoprolol 10mg Tablet] 10 mg PO BID #60 tab
--- NOTE | 2018-04-25 08:46 | Progress Note ---
Subjective Date: 04/25/18 Time: 08:44 Principal diagnosis: V. tach, CHF Interval history: 58 yo WF in bed in NAD. Asking to go home. States she feels great. Exam Vital signs and Labs for Last 24 Hours: Temp Pulse Resp BP Pulse Ox 98.4 F 101 H 18 131/70 95 04/25/18 08:00 04/25/18 08:00 04/25/18 08:00 04/25/18 08:00 04/25/18 08:00 Laboratory Results - last 24 hr 04/24/18 16:39: POC Glucose 200 H 04/24/18 19:58: POC Glucose 246 H 04/25/18 05:36: POC Glucose 260 H 04/25/18 06:49: Sodium 141, Potassium 3.4 L, Chloride 100, Carbon Dioxide 31, Anion Gap 13.4, BUN 16, Creatinine 1.54 H D, Estimated Creat Clear 40, Estimated GFR 35 L, Est GFR ( Amer) 42 L, Glucose 269 H, Calcium 8.7 I & O for Last 24 hours: Intake & Output 04/22/18 04/23/18 04/24/18 04/25/18 11:59 11:59 11:59 11:59 Intake Total 257 / 257 360 / 360 1560 / 1560 Output Total 100 / 100 6350 / 6350 900 / 900 Balance 157 / 157 -5990 / -5990 660 / 660 Weight 369 lb 348 lb 15.868 oz 343 lb 7.683 oz - *Routine HEENT Exam Head: Present: normocephalic Eye: Present: EOMI, PERRL ENT: Present: mucous membranes moist - *Routine Respiratory Exam Present: CTA bilaterally. Absent: accessory muscle use, rales, rhonchi, wheezes - *Routine Cardiovascular Exam Present: RRR. Absent: murmur, gallop, rubs - *Routine Extremities Exam Absent: edema, calf tenderness - *Routine Neurological Exam Present: alert, oriented X3, moving all extremities Progress Note: A&P (1) Ventricular tachycardia Status: Resolved Current Visit: Yes (2) Heart palpitations Status: Resolved Current Visit: Yes (3) HFrEF (heart failure with reduced ejection fraction) Status: Chronic Current Visit: Yes (4) Acute kidney injury Status: Acute Current Visit: Yes (5) Obesity Status: Chronic Current Visit: Yes (6) Diabetes mellitus, insulin dependent (IDDM), uncontrolled Status: Chronic Current Visit: Yes (7) Atrial fibrillation, new onset Status: Chronic Current Visit: No (8) Morbid obesity Status: Chronic Current Visit: No (9) HTN (hypertension) Status: Chronic Current Visit: No (10) Pulmonary hypertension Status: Chronic Current Visit: No (11) Dilated cardiomyopathy Status: Chronic Current Visit: Yes (12) Severe left ventricular systolic dysfunction Status: Acute Current Visit: Yes Assessment and Plan for All Diagnoses:: AICD site looks good. Left arm and dietary restrictions discussed with patient. Vitals stable. Home meds reviewed and agree with Dr. Shaffer's note. Follow up next week with Dr. MAY.
--- NOTE | 2018-04-26 09:30 | Procedure Note ---
[facility] AICD - AICD Date: 04/24/18 Procedures:: 1. Pocket formation for AICD. 2. Placement of atrial sensing and pacing coil into the right atrial appendage. 3. Placement of a ventricular sensing pacing and shocking coil in the right ventricular apex. 4. Permanent AICD placement Indications for test:: Systolic Congestive Heart Failure ejection <35% [place] [employer] Class 3 CHF Informed consent:: Obtained prior to procedure. EBL:: Less than 10 ml. Technique:: 1% lidocaine with epinephrine used to anesthetize the left anterior aspect of chest. Scalpel was used to make the initial cutaneous incision wall electrocautery was used to dissect down into the fascia. The fascia was lifted off the pectoralis muscle and digitally manipulated creating a pocket for the defibrillator. The patient was then placed in Trendelenburg position and the subclavian vein was accessed via the Seldinger technique. A 7 Italian sheath was placed under fluoroscopic guidance into the subclavian vein. Following this, an additional wire was placed into the sheath. Now, with 2 wires inside the 7 Italian sheath, this sheath was removed, maintaining the 2 wires in the subclavian vein. This shift and dilator was then placed over 1 of the wires while keeping the other wire in place within the subclavian vein. The dilator was removed from the sheath. Using fluoroscopic guidance, the ventricular lead was placed into the right ventricular apex, screwed and secured into place. Electronic interrogation proved acceptable thresholds and voltage within the lead. Using 3-0 silk, the ventricular lead was then secured into place. Lead was secured to the fascia using the 3-0 silk. Following this, the sheath was peeled away. An additional 7 Italian fresh sheath and dilator was placed over the existing wire. Using fluoroscopic guidance, the atrial lead was then placed into the right atrial appendage and screwed and secured in place. Electrical interrogation demonstrated acceptable thresholds and voltage number. The atrial lead was then secured into place using 3-0 silk. 1 g of Ancef was used to flush the pocket. Following the defibrillator being secured to the fascia and in place, Monocryl was used to close subcutaneous layer bradley were used to close the cutaneous layer. A pressure dressing was placed and the patient was transferred to the postop holding area in stable condition for postoperative care. Impression:: 1. Successful pocket formation for permanent defibrillator placement. 2. Successful placement of an atrial sensing pacing lead into the right atrial appendage. 3. Successful placement of a ventricular sensing, pacing, and shocking lead in the right ventricular apex. 4. Successful permanent defibrillator placement. Interrogation:: Generator Model # D233 Serial # [id number] RA Model # 7741 Serial # [id number] P-wave 4.8 mV Impedance 606 Ohms Threshold 0.7V Pulse Width .5ms RVA Model # 0676 Serial # [id number] R-wave 8.8 mV Impedance 4540 Ohms SHOCKING IMP: 40 Ohms Threshold .4V Pulse Width 0.5ms Pacing Parameters: Mode: DDDR Base/Max Track: 60/120 VF: 220 bpm; Therapy: Quick Convert 41J x 8 VT 180 bpm; Therapy ATP 41J x6 NO D/S @ 10 VOLTS Plan:: 1.Post-op wound care.
== END 2018-04-25 10:50 | disposition home or self-care (01) | DRG 245 ==
LOC: ER 18:59 → 2ND 18:59
PROVIDERS: ADMIT Internal Medicine Adolescent Medicine; ATTEND Internal Medicine Adolescent Medicine
CPT/HCPCS: 33249; 36415; 71010; 71045; 80048; 80053; 80061; 82550; 82553; 82962; 83735; 83880; 84436; 84443; 84479; 84484; 85025; 87507; 93005; 93306; 93308; 94761; 99285; C1721; C1895; C1898; G0378; J2405